=== PATIENT | female | born 1960 | race Caucasian/White ===

== ENCOUNTER 2018-11-26 17:18 | Inpatient (IN) | payer SELFPAY ==
[~2018-11-26] VITALS: Ht 167.6 cm; Wt 156.0 kg
[~2018-11-26 17:18] MED LIST: ASPIRIN 81 MG E81 MG PO; BIOTIN5 MG PO; CINNAMON500 MG PO; FISH OIL 1,0001 CA1 PO; L-LYSINE500 M1; LASIX20 MG PO; LOPRESSOR25 MG; PERCOCET 10/3251 TA1 PO; POTASSIUM99 M1; VITAMIN A10000 UNIT PO; VITAMIN B-122500 MCG SL; VITAMIN D31000 UNIT; ZESTRIL20 MG PO
[2018-11-26 18:04] VITALS: BP 178/103; BMI 55.6
[2018-11-26 18:40] LABS: BASOPHILS 0.1 % (0-2); EOSINOPHILS 0.8 % (0-7); HEMATOCRIT 45.2 % (36.0-48.0); HEMOGLOBIN 14.2 g/dL (12-16); IMMATURE GRANULOCYTES 0.1 % (0-5); LYMPHOCYTES 9.7 % (15-50); MCH 26.1 pg (26.0-34.0); MCHC 31.4 g/dL (31.0-37.0); MCV 83.1 fL (80.0-100.0); MEAN PLATELET VOLUME 8.7 fL (7.4-10.4); MONOCYTES 7.5 % (2-11); NEUTROPHILS 81.8 % (40-80); PLATELET COUNT 230 10x3/uL (130-400); RBC 5.44 10x6/uL (4.00-5.40); RDW 17.5 % (11.5-14.5); WBC 7.4 10x3/uL (4.8-10.8)
[2018-11-26 18:57] LABS: ANION GAP 9.7 mmol/L (8-16); CALCIUM 8.4 mg/dL (8.5-10.1); CARBON DIOXIDE 31.1 mmol/L (21.0-32.0); CREATININE - SERUM 1.2 mg/dL (0.6-1.3); POTASSIUM - SERUM 4.8 mmol/L (3.5-5.1)
[2018-11-26 20:34] VITALS: BP 166/106
[2018-11-27 01:07] VITALS: BP 147/81
--- NOTE | 2018-11-27 04:17 | NUR ---
1930) rec;d sitting on side of bed ,at bedside encouraged to elevate legs to reduce swelling as well as to reduce increase further swelling.breonna. lower ext. angry red with 2+ edema refuses to palpate for pulse states just to tender to touch.nohelia wrap drsg dry and intact lower ext.iv started right wrist will continue to monitor for any chges in current status and follow current plan of care
[2018-11-27 04:52] VITALS: BP 148/72
--- NOTE | 2018-11-27 06:43 | NUR ---
I have reviewed this patient and I concur with the Shift Assessment completed by the Licensed Practical Nurse today this shift.
--- NOTE | 2018-11-27 07:58 | NUR ---
PT SITTING UP ON THE SIDE OF BED WITH FEET PROPPED UP ON CHAIR WITH LEGS WEEPING ONTO BLUE PADS IN THE FLOOR. STATES THAT HER LEGS BURN WAY TOO BAD TO LEAVE THE DRESSINGS ON. IV LOCATED TO RIGHT WRIST RUNNING NS @ [facility]. ALERT AND ORIENTED. WOUND CULTURE OBTAINED AND TAKEN TO LAB. DENIES ANY NEEDS AT THIS TIME, WILL CONT TO MONITOR.
[2018-11-27 08:33] VITALS: BP 164/96
--- NOTE | 2018-11-27 12:16 | NUR ---
RESITED IV TO LEFT FOREARM. NO S/S OF DISTRESS, DENIES ANY NEEDS AT THIS TIME. WILL CONT TO MONITOR.
[2018-11-27 13:30] VITALS: BP 158/98
[2018-11-27 15:17] VITALS: Ht 167.6 cm; Wt 156.0 kg
--- NOTE | 2018-11-27 20:33 | NUR ---
REC'D. CHGE OF SHIFT WALKING ROUNDS SITTING UP BEDSIDE CHAIR FEET ELEVATED.ACEWRAP DRSG TO BOTH LOWER EXT.REMAINS RED WITH MOD. SWELLING BOTH FEET. STILL UNABLE TO LET NURSE TOUCH FEET FOR PULSE STATES HURTS TO BAD. WIGGLES TOES AND DORSIFLEXES.WILL CONTINUE TO MONITOR FOR ANY CHGES IN NEUROVASCULAR STATUS AND FOLLOW CURRENT PLAN OF CARE.
[2018-11-27 21:28] VITALS: BP 150/80
[2018-11-28 01:13] VITALS: BP 158/100
--- NOTE | 2018-11-28 03:56 | NUR ---
I have reviewed this patient and I concur with the Shift Assessment completed by the Licensed Practical Nurse today this shift.
[2018-11-28 05:45] VITALS: BP 119/59
[2018-11-28 08:11] VITALS: BP 118/74
--- NOTE | 2018-11-28 11:11 | NUR ---
PT ALERT X 4. BREATH SOUNDS CLEAR BILAT. IV TO RIGHT AC, PATENT, DRESSING CDI. BLE CORINNA WRAPS, SKIN REDDENED. PT REPORTING PAIN OF 6/10, WILL MONITOR. PT SITTING UP IN CHAIR. BED LOW, CALL LIGHT IN REACH. NO OTHER NEEDS AT THIS TIME.
--- NOTE | 2018-11-28 12:51 | NUR ---
DISCHARGE PAPERWORK SIGNED, ALL QUESTIONS ANSWERED. IV TO LEFT AC DC'D, TIP INTACT. ESCORTED OUT BY WHEELCHAIR
[2018-11-28 13:38] VITALS: BP 108/67
[2018-11-28 16:45] VITALS: BP 108/60
[2018-11-28 20:00] VITALS: BP 124/73
--- NOTE | 2018-11-28 20:00 | NUR ---
A/O WITH NO SIGNS OF ACUTE DISTRESS. IV TO THE LT FOREARM WITH NO REDNESS OR SWELLING NOTED. DRESSING TO THE MARILOU LOWER LEGS WITH REDNESS NOTED. COMPLAINING OF 8/10 PAIN. DENIES FURTHER NEEDS AT THIS TIME. CONTINUE WITH PLAN OF CARE.
[2018-11-29] VITALS: BP 113/82
[2018-11-29 04:00] VITALS: BP 111/58
[2018-11-29 07:36] LABS: BASOPHILS 0.2 % (0-2); EOSINOPHILS 1.1 % (0-7); HEMATOCRIT 42.3 % (36.0-48.0); HEMOGLOBIN 13.1 g/dL (12-16); IMMATURE GRANULOCYTES 0.1 % (0-5); MCV 83.9 fL (80.0-100.0); MEAN PLATELET VOLUME 8.8 fL (7.4-10.4); MONOCYTES 10.8 % (2-11); NEUTROPHILS 74.8 % (40-80); PLATELET COUNT 257 10x3/uL (130-400); RBC 5.04 10x6/uL (4.00-5.40); RDW 17.9 % (11.5-14.5); WBC 8.8 10x3/uL (4.8-10.8)
[2018-11-29 07:47] LABS: ANION GAP 10.3 mmol/L (8-16); CALCIUM 8.4 mg/dL (8.5-10.1); CARBON DIOXIDE 30.3 mmol/L (21.0-32.0); CREATININE - SERUM 1.3 mg/dL (0.6-1.3); POTASSIUM - SERUM 4.6 mmol/L (3.5-5.1)
[2018-11-29 09:42] VITALS: BP 128/66
--- NOTE | 2018-11-29 10:04 | NUR ---
Nutrition follow-up: Diet: consistent CHO PO intake is usually good Labs reviewed Wt: 344# RDN following.
--- NOTE | 2018-11-29 12:28 | MORECARE ---
CASE MANAGEMENT DISCHARGE SUMMARY PATIENT: AMBIKA HOUSE UNIT: [id number] ADM DATE: 11/26/18 AGE: 58 : 62 SEX: F ROOM/BED: D.2202 AUTHOR: SUBHASH ORTEGA PHYSICIAN: REFERRING PHYSICIAN: TONIO DAVILA MD DATE OF SERVICE: 11/29/18 Discharge Plan Patient Name: AMBIKA HOUSE Facility: [facility]:[place] : 1960 Planned Disposition: Home or Self Care Anticipated Discharge Date: Discharge Date: Expected LOS: Initial Reviewer: [email or web address] Initial Review Date: 11/26/2018 Generated: 11/29/18 1:28 pm Comments DCP- Discharge Planning Updated by [email or web address]: April Ross on 11/29/18 11:[address] Patient Name: AMBIKA HOUSE Admission Status: Elective Accout number: [id number] Admission Date: 11-26-2018 : 1960 Admission Diagnosis:CHRONIC VENOUS HYPERTENSION W ULCER OF BILATERAL LOW EX Attending: TONIO DAVILA Current LOS: 3 Anticipated DC Date: Planned Disposition: Home or Self Care Primary Insurance: UNINSURED DISCOUNT PLAN Discharge Planning Comments: CM met with patient to complete initial dc planning assessment. CM educated patient on the CM role and verbal consent given by patient to complete assessment. Patient lives at home with her where she is independent with her care . At discharge patient plans to return home and feels this is a safe discharge. CM discussed availability of home health, rehab services, and medical equipment. She does not use any DME. She is uninsured and does not qualify for JAMES, so she will not be able to have home health if needed. Patient denied known discharge needs at this time. CM will continue to follow and will assist as needed with dc plans/needs. Loader Magazine Grinder: April Ross DCPIA - Discharge Planning Initial Assessment Updated by [email or web address]: April Ross on 11/29/18 12:25 pm * How many steps to enter\exit or inside your home? * PCP GIOVANNI * Pharmacy [facility] * Preadmission Environment Home with Family * ADLs Independent * Equipment None * List name and contact numbers for known caregivers / representatives who currently or will assist patient after discharge: MICAELA HOUSE [phone] * Verbal permission to speak to the caregivers and representatives has been obtained from the patient. N/A * Community resources currently utilized None * Additional services required to return to the preadmission environment? No * Can the patient safely return to the preadmission environment? Yes * Has this patient been hospitalized within the prior 30 days at any hospital? No Patient Name: AMBIKA HOUSE Page [phone] at 1228 All edits/amendments must be made on the electronic document DICTATION DATE: 11/29/18 1228 BATTERY PLATE REMOVER: LIANNA 11/29/18 1228 RPT#: [id number] OR DATE: STATUS: ADM IN [facility] [address] [place] [address] END OF REPORT
[2018-11-29 13:05] VITALS: BP 106/70
[2018-11-29 16:48] VITALS: BP 111/63
--- NOTE | 2018-11-29 19:13 | NUR ---
REMAINS WITHOUT DISTRESS. CONT PLAN OF CARE
[2018-11-29 20:00] VITALS: BP 112/62
[2018-11-30] VITALS: BP 103/70
[2018-11-30 04:00] VITALS: BP 99/45
[2018-11-30] MEDS ORDERED: TOPROL XL25 MG PO (06:31)
[2018-11-30 07:25] LABS: BASOPHILS 0.4 % (0-2); EOSINOPHILS 1.4 % (0-7); HEMATOCRIT 46.2 % (36.0-48.0); HEMOGLOBIN 13.5 g/dL (12-16); IMMATURE GRANULOCYTES 0.1 % (0-5); LYMPHOCYTES 20.1 % (15-50); MCH 25.6 pg (26.0-34.0); MCHC 29.2 g/dL (31.0-37.0); MEAN PLATELET VOLUME 8.8 fL (7.4-10.4); MONOCYTES 11.5 % (2-11); NEUTROPHILS 66.5 % (40-80); RBC 5.27 10x6/uL (4.00-5.40); RDW 17.9 % (11.5-14.5); WBC 7.2 10x3/uL (4.8-10.8)
[2018-11-30 07:26] LABS: MCV 87.7 fL (80.0-100.0); PLATELET COUNT 318 10x3/uL (130-400)
[2018-11-30 07:35] LABS: ANION GAP 9.9 mmol/L (8-16); CALCIUM 8.7 mg/dL (8.5-10.1); CARBON DIOXIDE 33.2 mmol/L (21.0-32.0); CREATININE - SERUM 1.5 mg/dL (0.6-1.3); POTASSIUM - SERUM 5.1 mmol/L (3.5-5.1)
[2018-11-30 08:47] VITALS: BP 159/101
--- NOTE | 2018-11-30 10:57 | NUR ---
PATIENT SITTING IN CHAIR. BROUGHT SOME REDNESS TO MY ATTENTION ON HER LEFT ARM WHERE THEY USED PAPER TAPE ON HER. CALLS HER IV MACHINE/POLL NOLBERTO. CO SON THAT IS 38 YO IS BEING CRAZY AND NOT TALKING TO HIS "ADOPTED" GRANDFATER. CL IN REACH. REQUESTED AND RECIEVED ICE AND ICE WATER. TM
[2018-11-30 13:38] VITALS: BP 142/106
[2018-11-30 16:45] VITALS: BP 136/103
[2018-11-30 20:00] VITALS: BP 157/97
--- NOTE | 2018-11-30 20:58 | NUR ---
PT C/O BILAT LEG PAIN 07/13. GAVE 1 TAB NORCO-10. BILAT UNNA BOOT BANDAGES C/D/I. LOVENOX GIVEN. PT SITTING UP IN CHAIR WITH LEGS ELEVATED. COMPLETE ASSESSMENT PER FLOW-SHEET. NO OTHER NEEDS. WILL CONTINUE TO MONITOR.
[2018-12-01 04:00] VITALS: BP 129/78
[2018-12-01 06:31] LABS: BASOPHILS 0.6 % (0-2); HEMATOCRIT 44.5 % (36.0-48.0); HEMOGLOBIN 13.2 g/dL (12-16); IMMATURE GRANULOCYTES 0.1 % (0-5); LYMPHOCYTES 16.5 % (15-50); MCH 25.6 pg (26.0-34.0); MCHC 29.7 g/dL (31.0-37.0); MCV 86.2 fL (80.0-100.0); MEAN PLATELET VOLUME 8.8 fL (7.4-10.4); MONOCYTES 12.5 % (2-11); NEUTROPHILS 68.3 % (40-80); PLATELET COUNT 325 10x3/uL (130-400); RBC 5.16 10x6/uL (4.00-5.40); RDW 17.4 % (11.5-14.5); WBC 7.1 10x3/uL (4.8-10.8)
[2018-12-01 06:53] LABS: ANION GAP 11.6 mmol/L (8-16); CALCIUM 8.4 mg/dL (8.5-10.1); CARBON DIOXIDE 30.3 mmol/L (21.0-32.0); CREATININE - SERUM 1.4 mg/dL (0.6-1.3); VANCOMYCIN - TROUGH 27.5 ug/mL (10.0-20.0)
[2018-12-01 06:54] LABS: POTASSIUM - SERUM 3.9 mmol/L (3.5-5.1)
--- NOTE | 2018-12-01 07:51 | NUR ---
PT SITTING UP IN BEDSIDE CHAIR, ALERT AND ORIENTED. COMPLAINING OF PAIN AT IV SITE, DC`D WITH CATHETER TIP INTACT WILL RESITE. BREATHING EVEN AND NONLABORED, NO S/S OF DISTRESS. DENIES NEEDS AT THIS TIME, WILL CONT TO MONITOR.
[2018-12-01 08:46] VITALS: BP 140/87
--- NOTE | 2018-12-03 08:46 | MORECARE ---
CASE MANAGEMENT DISCHARGE SUMMARY PATIENT: AMBIKA HOUSE UNIT: [id number] ADM DATE: 11/26/18 AGE: 58 : 62 SEX: F ROOM/BED: D.2202 AUTHOR: SUBHASH ORTEGA PHYSICIAN: REFERRING PHYSICIAN: TONIO DAVILA MD DATE OF SERVICE: 12/03/18 Discharge Plan Patient Name: AMBIKA HOUSE Facility: [facility]:[place] : 1960 Planned Disposition: Home or Self Care Anticipated Discharge Date: Discharge Date: 12/01/2018 Expected LOS: Initial Reviewer: [email or web address] Initial Review Date: 11/26/2018 Generated: 12/03/18 9:46 am Comments DCP- Discharge Planning Updated by [email or web address]: April Ross on 11/29/18 11:[address] Patient Name: AMBIKA HOUSE Admission Status: Elective Accout number: [id number] Admission Date: 11-26-2018 : 1960 Admission Diagnosis:CHRONIC VENOUS HYPERTENSION W ULCER OF BILATERAL LOW EX Attending: TONIO DAVILA Current LOS: 3 Anticipated DC Date: Planned Disposition: Home or Self Care Primary Insurance: UNINSURED DISCOUNT PLAN Discharge Planning Comments: CM met with patient to complete initial dc planning assessment. CM educated patient on the CM role and verbal consent given by patient to complete assessment. Patient lives at home with her where she is independent with her care . At discharge patient plans to return home and feels this is a safe discharge. CM discussed availability of home health, rehab services, and medical equipment. She does not use any DME. She is uninsured and does not qualify for JAMES, so she will not be able to have home health if needed. Patient denied known discharge needs at this time. CM will continue to follow and will assist as needed with dc plans/needs. Senior Business Objects Developer: April Ross DCPIA - Discharge Planning Initial Assessment Updated by [email or web address]: April Ross on 11/29/18 12:25 pm * How many steps to enter\exit or inside your home? * PCP GIOVANNI * Pharmacy [facility] * Preadmission Environment Home with Family * ADLs Independent * Equipment None * List name and contact numbers for known caregivers / representatives who currently or will assist patient after discharge: MICAELA HOUSE [phone] * Verbal permission to speak to the caregivers and representatives has been obtained from the patient. N/A * Community resources currently utilized None * Additional services required to return to the preadmission environment? No * Can the patient safely return to the preadmission environment? Yes * Has this patient been hospitalized within the prior 30 days at any hospital? No Last DP export: 11/29/18 11:28 a Patient Name: AMBIKA HOUSE Page [phone] at 0846 All edits/amendments must be made on the electronic document DICTATION DATE: 12/03/18845 AMUSEMENT RIDE OPERATOR: LIANNA 12/03/18845 RPT#: [id number] DC DATE:12/01/18 STATUS: DIS IN [facility] [address] [place] [address] END OF REPORT
== END 2018-12-01 12:00 | disposition home or self-care (01) | DRG 300 ==
LOC: D.MS 17:18
PROVIDERS: ADMIT Family Medicine; ATTEND Family Medicine
DX: I87.313 Chronic venous hypertension (idiopathic) with ulcer of bilateral lower extremity (principal); L03.116 Cellulitis of left lower limb; L97.222 Non-pressure chronic ulcer of left calf with fat layer exposed; L97.212 Non-pressure chronic ulcer of right calf with fat layer exposed; L03.115 Cellulitis of right lower limb; R60.0 Localized edema; I10 Essential (primary) hypertension; R73.03 Prediabetes; B96.5 Pseudomonas (aeruginosa) (mallei) (pseudomallei) as the cause of diseases classified elsewhere; B96.89 Other specified bacterial agents as the cause of diseases classified elsewhere

== ENCOUNTER 2019-02-17 01:51 | Inpatient (IN) | payer SELFPAY ==
[2019-02-17] VITALS (23 sets, daily range): BP systolic 94–123; BP diastolic 42–89; BMI 48.2
[~2019-02-17] VITALS: Ht 167.6 cm; Wt 146.4 kg
[~2019-02-17 01:51] MED LIST changes: +TOPROL XL25 MG PO
[2019-02-17 02:18] LABS: BASOPHILS 0.1 % (0-2); EOSINOPHILS 1.3 % (0-7); HEMATOCRIT 34.9 % (36.0-48.0); HEMOGLOBIN 10.6 g/dL (12-16); IMMATURE GRANULOCYTES 0.5 % (0-5); LYMPHOCYTES 6.5 % (15-50); MCH 26.2 pg (26.0-34.0); MCHC 30.4 g/dL (31.0-37.0); MCV 86.2 fL (80.0-100.0); MEAN PLATELET VOLUME 8.2 fL (7.4-10.4); MONOCYTES 5.1 % (2-11); NEUTROPHILS 86.5 % (40-80); PLATELET COUNT 333 10x3/uL (130-400); RBC 4.05 10x6/uL (4.00-5.40); RDW 20.7 % (11.5-14.5); WBC 8.2 10x3/uL (4.8-10.8)
[2019-02-17 02:21] LABS: INR 1.17 (0.85-1.17); PROTIME 14.4 SECONDS (11.6-15.0)
[2019-02-17 02:22] LABS: CALC OSMOLALITY 289 mosm/kg (275-300); CALCIUM 8.6 mg/dL (8.5-10.1); CARBON DIOXIDE 15.3 mmol/L (21.0-32.0); CHLORIDE - SERUM 107 mmol/L (98-107); CREATININE - SERUM 2.9 mg/dL (0.6-1.3); GLUCOSE 122 mg/dL (74-106); POTASSIUM - SERUM 5.5 mmol/L (3.5-5.1); SODIUM 137 mmol/L (136-145); UREA NITROGEN 55 mg/dL (7-18); eGFR NON AFRICAN AMERICAN 18 mL/min (90-120)
--- NOTE | 2019-02-17 02:25 | NUR ---
DRESSINGS REMOVED, SEVERE ULCERATIONS NOTED TO BLE. PRESSURE ULCERS NOTED TO HEELS. DRAINAGE AND ODOR PRESENT.
[2019-02-17] MEDS ORDERED: ZYRTEC10 MG PO (02:33)
[2019-02-17] MEDS ORDERED: HYDROCODON-ACE1 EAC7 PO (02:33)
[2019-02-17 02:36] LABS: ALBUMIN 1.7 g/dL (3.4-5.0); ALKALINE PHOSPHATASE 148 U/L (46-116); ALT (SGPT) 54 U/L (10-68); BILIRUBIN - TOTAL 0.31 mg/dL (0.2-1.3); CKMB 0.6 U/L (0.0-3.6); CREATINE KINASE 20 UL (21-215); MAGNESIUM - SERUM 1.8 mg/dL (1.8-2.4); THYROID STIMULATING HORMONE 11.48 uIU/mL (0.36-3.74); TROPONIN-I < 0.017 ng/mL (0.000-0.060)
--- NOTE | 2019-02-17 03:15 | NUR ---
WOUNDS TO BILAT LOWER LEGS CLEANSED AND DRESSED.
[2019-02-17 03:36] LABS: APPEARANCE HAZY (CLEAR); BILIRUBIN NEGATIVE (NEGATIVE); COLOR YELLOW (YELLOW); GLUCOSE NEGATIVE (NEGATIVE); KETONE NEGATIVE (NEGATIVE); NITRITE POSITIVE (NEGATIVE); PROTEIN TRACE mg/dL (NEGATIVE); RED CELLS - URINE 0-5 /hpf (0-5); UROBILINOGEN NORMAL (NORMAL)
[2019-02-17 03:37] LABS: BACTERIA MANY /hpf (NEGATIVE); EPITHELIAL CELLS RARE /hpf (0-5)
--- NOTE | 2019-02-17 03:42 | NUR ---
PT RESTING ON BED, EYES CLOSED. PT FAMILY PRESENT AT BEDSIDE.
--- NOTE | 2019-02-17 05:28 | NUR ---
PT ARRIVED ON UNIT VIA STRETCHER ACCOMPANIED BY ER STAFF. NO VALUABLES, PT UNABLE TO SPEAK, FOLLOWS COMMANDS, EYES ARE OPEN AND TRACKING. SHE IS ONLY MOANING WITH SOME UNINTELLIGIBLE SPEECH
--- NOTE | 2019-02-17 06:28 | NUR ---
UNABLE TO SUICIDE SCREEN AT THIS TIME - UNABLE TO PLACE SCDS DUE TO WOUNDS AND POSSIBLE INFECTION
--- NOTE | 2019-02-17 07:18 | NUR ---
PATIENT DOES NOT ACTUALLY WAKE UP, MOANS WHEN SPOKEN TOO. DOES NOT OPEN EYES, GASPING TYPE RESP ON OXYGEN NC AT 4 LITERS. OX2 SAT 97%. LEFT FOREARM AND LEFT AC IV'S WITHOUT REDNESS OR SWELLING INFUSING WITH CARDIZEM AT 5MG HOUR, LR AT 125 ML HOUR. HARDIN CAHT DRAINING CLEAR YELLOW URINE. MONITOR ST WITH PVC'S. BECOMES STARLED WHEN PILLOW PLACED UNDER HER HEAD. HEAD OF BED ELEVATED 30 DEGREES. BILATERAL LOWER LEGS WRAPPED IN KERLIX. FEET HAVE PITTING EDEMA AND ARE A DEEP PINK COLOR. DRESSING ARE DRY. NO DRAINAGE NOTED.
--- NOTE | 2019-02-17 08:34 | NUR ---
DR. IZAGUIRRE NOTIFIED OF FREQ PVC, BIGEMINAL COUPLETS, TRIPLETS, VERY FREQ PVC'S. CONSULT FOR CARDIOLOGY. DR. RAMIREZ NOTIFIED. DR. IZAGUIRRE NOTIFIED OF NOT WAKING UP AND BREATHING [POORLY. CONSULT FOR PULMONARY
--- NOTE | 2019-02-17 08:40 | NUR ---
TALKED WITH AT BEDSIDE. UPDATE GIVEN. NOTIFIED OF CARDIOLOGY AND PULMONARY CONSULTS. PATIENT IS A FULL CODE. EMOTIONAL SUPPORT GIVEN.
--- NOTE | 2019-02-17 10:00 | NUR ---
HIBCLENS BATH GIVEN PATIENT TOLERATED VERY POORLY. CLEAN LINEN AND REPOSITIONED. BOTH DRESSING LOWER LEGS SATURATED WITH FOUL SMELLING LIQUID. BOTH DRESSING REMOVED, STERILE 4X4 AND ABD PADS APPLIED WRAPPED IN KERLIX. PATIENT TOLERATED POORLY. LOWER LEGS ELEVATED ON PILLOWS. HEELS OFF MATTRESS. NO SKIN BREAKDOWN NOTED ON BODY. JUST LOWER LEGS, EXTENSIVE OPEN WOUNDS WITH YELLOW, BLACK AND PINK TISSUE. TENDONS NOTED ON RIGHT ANKLES. LEFT HEEL BLACK BLISTER AREA.
--- NOTE | 2019-02-17 11:56 | NUR ---
DR. DE LOS SANTOS HERE TALKED WITH . ORDERS RECEIVED FOR SURGERY CONSULT REGARDING LEGS WITH X-RAY WITH GAS ON THEM. LARGE AMOUNT CLEAR YELLOW FOUL SMELLING DRAINAGE FROM LEGS. DRESSING REMOVED. DRY 4X4 AND ABD PADS APPLIED WRAPPED IN KERLIX. OPEN WOUNDS PINK VERY LARGE.
--- NOTE | 2019-02-17 12:36 | NUR ---
DR. IZAGUIRRE HERE. TALKED WITH . PATIENT ANSWERING YES AND NO QUESTIONS. MOANING BUT DENIES PAIN DENIES SHE IS UNCOMFORTABLE.
--- NOTE | 2019-02-17 12:44 | NUR ---
CENTRAL LINE INSERTED PER DR. SARKAR WITHOUT DIFFICULTY PATIENT TOLERATED FAIR. CXR DONE. LINE CLEARED FOR USE.
--- NOTE | 2019-02-17 13:00 | NUR ---
DR. SARKAR HERE, DRESSING REMOVED LOWER EXTREMITIES WITH REMOVAL OF SOME TISSUE PER DR. SARKAR. HERE TALKED WITH . LOWER EXTREMITITES CLEAN WITH SOAP AND WATER PER DR. SARKAR INSTRUCTIONS. DR. FERNANDO HERE STATES TO USE WET TO DRY BETADINE DRESSINGS. TOMORROW THEN CAN USE SILVADEAN. BETADINE 4X4 APPLIED TO OPEN WOUNDS, ABD PADS APPLIED WRAPPED LEGS IN KERLIX. DRESSING CHANGE VERY PAINFUL FOR PATIENT. MORPHINE QUALITY ASSURANCE MONITOR STARTED 3 MG BOLUS LOADING DOSE GIVEN DURING DRESSING CHANGE FOR PAIN. GIVEN INSTRUCTIONS ON QUALITY ASSURANCE MONITOR. PATIENT GIVEN INSTRUCTION ON QUALITY ASSURANCE MONITOR PUMP AND SAID NO PRESSING BUTTON.
--- NOTE | 2019-02-17 15:00 | NUR ---
PATIENT RESTING MORE COMFORTABLY ANSWERING QUESTIONS , STILL MOANING AT TIMES. BUT REST AT TIMES. REPOSITIONED. CVP SET UP
--- NOTE | 2019-02-17 18:22 | NUR ---
PATIENT WAKES UP TO NAME OPENS EYES, MOANING AT TIMES. RESP DEEP AND REGULAR. NOT ALWAY ANSWERING QUESTIONS.
--- NOTE | 2019-02-17 19:15 | NUR ---
REPORT RECEIVED. ASSESSMENT COMPLETE PER FLOW SHEET. VSS. NO NEW CHANGES PT ERSTING COMFORTABLY WILL CONTINUE TO MONITOR
--- NOTE | 2019-02-17 21:00 | NUR ---
FAMILY AT BEDSIDE GIVEN UPDATE NO NEW CHANGES WILL CONTINUE TO MONITOR
--- NOTE | 2019-02-17 23:15 | NUR ---
REPORT RECEIVED. ASSESSMENT COMPLETE PER FLOW SHEET. VSS. NO NE CHANGES WILL CONTINUE TO MONITOR
[2019-02-18] VITALS (24 sets, daily range): BP systolic 92–114; BP diastolic 50–78; Ht 167.6 cm; Wt 146.4 kg
--- NOTE | 2019-02-18 01:00 | NUR ---
PT SLEEPING COMFORTABLY NO NEW CHANGES REPOSITIONED FOR COMFORT WILL CONTINUE TO MONITOR
--- NOTE | 2019-02-18 03:14 | NUR ---
REASSESSMENT COMPLETE PER FLOW SHEET. VSS. NO NEWCAHNGES WILL CONTINUE TO MONITOR
[2019-02-18 04:04] LABS: BASOPHILS 0.2 % (0-2); EOSINOPHILS 0.7 % (0-7); IMMATURE GRANULOCYTES 0.3 % (0-5); LYMPHOCYTES 11.1 % (15-50); MCH 26.4 pg (26.0-34.0); MCHC 30.3 g/dL (31.0-37.0); MEAN PLATELET VOLUME 7.8 fL (7.4-10.4); MONOCYTES 14.5 % (2-11); NEUTROPHILS 73.2 % (40-80); RDW 20.9 % (11.5-14.5)
[2019-02-18 04:08] LABS: HEMATOCRIT 25.4 % (36.0-48.0); HEMOGLOBIN 7.7 g/dL (12-16); PLATELET COUNT 241 10x3/uL (130-400); RBC 2.92 10x6/uL (4.00-5.40); WBC 11.4 10x3/uL (4.8-10.8)
[2019-02-18 04:12] LABS: APTT 48.7 SECONDS (22.8-39.4)
[2019-02-18 04:20] LABS: D-DIMER-QUANTITATIVE 2.82 ug/mLFEU (0.20-0.54)
[2019-02-18 04:29] LABS: ALBUMIN 1.3 g/dL (3.4-5.0); BILIRUBIN - DIRECT 0.12 mg/dL (0.00-0.30); BILIRUBIN - INDIRECT 0.16 mg/dL (0.00-1.00); BILIRUBIN - TOTAL 0.28 mg/dL (0.2-1.3); MAGNESIUM - SERUM 1.8 mg/dL (1.8-2.4); PHOSPHOROUS 4.3 mg/dL (2.5-4.9)
[2019-02-18 04:40] LABS: INR 1.51 (0.85-1.17); PROTIME 17.6 SECONDS (11.6-15.0)
--- NOTE | 2019-02-18 05:30 | NUR ---
PT AWAKE ALERT OREINTED AT THIS TIME. VSS. NO FURTHER NEW CHANGES PT GIVEN ICE WATER PER ERWQUEST AND REPOSITIONED. DENIES FURTHER NEEDS
--- NOTE | 2019-02-18 07:30 | NUR ---
ASSUMED CARE OF PT FROM CHARGE NURSE, PT RESTING IN BED, ANSWERS QUESTIONS BUT IS CONFUSED OF TIME AND SITUATION, REORIENTED. VSS. DENIES ANY NEEDS AT THIS TIME, WILL CONT TO FOLLOW POC
--- NOTE | 2019-02-18 09:30 | NUR ---
PT RESTING IN BED, VSS AND WNL. FAMILY AT BEDSIDE. DENIES ANY NEEDS AT THIS TIME, BED ALARM ON, WILL CONT TO FOLLOW POC
--- NOTE | 2019-02-18 10:00 | NUR ---
WOUND CARE PROVIDED ORDERED TO BLE. COMPUTER NETWORKING INSTRUCTOR ADJUNCT BUTTON EDUCATION PROVIDED AND PT VERBALIZES UNDERSTANDING ON USE. COMPUTER NETWORKING INSTRUCTOR ADJUNCT WITHIN REACH, FAMILY AT BEDSIDE, WILL CONT TO FOLLOW POC
--- NOTE | 2019-02-18 12:00 | NUR ---
TRAY SET UP PROVIDED. PT IS NOT HUNGRY AT THIS TIME, FAMILY AT BEDSIDE AND WILL TRY TO GET PT TO TAKE A FEW BITES. BED ALARM ON. DENIES ANY FURTHER NEEDS AT THIS TIME, WILL CONT TO FOLLOW POC
--- NOTE | 2019-02-18 12:54 | NUR ---
PT BP DROPPED INTO 80S SYSTOLIC. PAUSED AMIODARONE AND PT BP INCREASED BACK INTO THE 100S SYSTOLIC. NOTIFIED DR. CÁRDENAS, NEW ORDERS RECIEVED TO STOP AMIODARONE FOR NOW.
--- NOTE | 2019-02-18 15:00 | NUR ---
PT RESTING IN BED, VSS AND WNL. FAMILY AT BEDSIDE. BED ALARM ON. DENIES ANY NEEDS AT THIS TIME, WILL CONT TO FOLLOW POC
--- NOTE | 2019-02-18 16:00 | NUR ---
PT RESTING IN BED, VSS AND WNL. FAMILY AT BEDSIDE, NO SIGNS OF DISTRESS NOTED. WILL CONT TO FOLLOW POC
--- NOTE | 2019-02-18 17:59 | NUR ---
PT HR IS STARTING TO RISE AT 103 BPM, BP STABLE AT 95/50 AT THIS TIME, NOTIFIED AND NEW ORDER RECIEVED FOR 500ML LR BOLUS. WILL CONT TO FOLLOW POC
--- NOTE | 2019-02-18 19:15 | NUR ---
REPORT RECEIVED. ASSESSMENT COMPLETE PER FLOW SHEET. VSS. NO NEW CHANGES PT RESTING COMFORTABLY DENIES NEEDS WILL CONTINUE TO MONITOR
--- NOTE | 2019-02-18 21:00 | NUR ---
FAMILY AT BEDSIDE GIVEN UPDATE NO NEW CHANGES WILL CONTINUE TO MONITOR
--- NOTE | 2019-02-18 23:00 | NUR ---
REASSESSMENT COMPLETE PER FLW SHEET. VSS. NO NEW CHANGES WILL CONTINUE TO MONITOR
[2019-02-19] VITALS (24 sets, daily range): BP systolic 92–119; BP diastolic 41–79
--- NOTE | 2019-02-19 01:20 | NUR ---
PT SLEEPING COMFORTABLY VSS NO NEW CHANGES PT RESTING COMFORTABLY WILL CONTINIUE TO MONITOR
--- NOTE | 2019-02-19 03:15 | NUR ---
REPORT RECEIVED. ASSESSMENT COMPLETE PER FLOW SHEET. VSS. NO NEW CHANGES WILL CONTINUE TO MONITOR
--- NOTE | 2019-02-19 05:15 | NUR ---
PT GIVEN ICE WATER PER REQUEST. DENIES FURTHER NEEDS VSS WILL CONTINUE TO MONITOR
[2019-02-19 05:19] LABS: BASOPHILS 0.2 % (0-2); EOSINOPHILS 2.3 % (0-7); HEMATOCRIT 26.5 % (36.0-48.0); HEMOGLOBIN 7.7 g/dL (12-16); IMMATURE GRANULOCYTES 0.2 % (0-5); LYMPHOCYTES 13.7 % (15-50); MCH 25.8 pg (26.0-34.0); MCHC 29.1 g/dL (31.0-37.0); MCV 88.9 fL (80.0-100.0); MEAN PLATELET VOLUME 8.2 fL (7.4-10.4); MONOCYTES 11.7 % (2-11); NEUTROPHILS 71.9 % (40-80); PLATELET COUNT 239 10x3/uL (130-400); RBC 2.98 10x6/uL (4.00-5.40); WBC 9.5 10x3/uL (4.8-10.8)
[2019-02-19 05:54] LABS: ANION GAP 9.8 mmol/L (8-16); BILIRUBIN - TOTAL 0.51 mg/dL (0.2-1.3); CALCIUM 8.2 mg/dL (8.5-10.1); CARBON DIOXIDE 27.9 mmol/L (21.0-32.0); CREATININE - SERUM 1.5 mg/dL (0.6-1.3); MAGNESIUM - SERUM 1.8 mg/dL (1.8-2.4); POTASSIUM - SERUM 4.7 mmol/L (3.5-5.1); PROTEIN - SERUM 5.8 g/dL (6.4-8.2)
[2019-02-19 06:08] LABS: ALBUMIN 1.8 g/dL (3.4-5.0)
--- NOTE | 2019-02-19 07:00 | NUR ---
PT RESTING IN BED, VSS AND WNL. PT TEARFUL BUT ANSERS QUESTIONS. PT IS CONFUSED OF CURRENT YEAR. BED ALARM ON. HARDIN CATHER NOTED DRAINING DARK YELLOW URINE FREELY VIA GRAVITY. WILL CONT TO FOLLOW POC
--- NOTE | 2019-02-19 09:00 | NUR ---
PT RESTING IN BED, VSS AND WNL. AT BEDSIDE. DENIES ANY NEEDS AT THIS TIME, WILL CONT TO FOLLOW POC
--- NOTE | 2019-02-19 09:37 | MORECARE ---
CASE MANAGEMENT DISCHARGE SUMMARY PATIENT: AMBIKA HOUSE UNIT: [id number] ADM DATE: 02/17/19 AGE: 58 : 62 SEX: F ROOM/BED: D.2309 AUTHOR: SUBHASH ORTEGA PHYSICIAN: REFERRING PHYSICIAN: TONIO DAVILA MD DATE OF SERVICE: 02/19/19 Discharge Plan Patient Name: AMBIKA HOUSE [facility] : 1960 Planned Disposition: Anticipated Discharge Date: Discharge Date: Expected LOS: Initial Reviewer: [email or web address] Initial Review Date: 02/19/2019 Generated: 02/19/19 10:36 am DCPIA - Discharge Planning Initial Assessment Updated by [email or web address]: Bertha Vivas on 02/19/19 9:35 am * Is the patient Alert and Oriented? Yes * How many steps to enter\exit or inside your home? 4-7 * PCP Maverick * Pharmacy [facility] * Preadmission Environment Home with Family * ADLs Independent * Equipment Wheelchair * Other Equipment B/P CUFF * List name and contact numbers for known caregivers / representatives who currently or will assist patient after discharge: SHAKA HOUSE - SPOUSE - [phone] * Verbal permission to speak to the caregivers and representatives has been obtained from the patient. Yes * Community resources currently utilized None * Additional services required to return to the preadmission environment? No * Can the patient safely return to the preadmission environment? Yes * Has this patient been hospitalized within the prior 30 days at any hospital? No Patient Name: AMBIKA HOUSE Page [phone] at 0937 All edits/amendments must be made on the electronic document DICTATION DATE: 02/19/19935 DISTRIBUTION ASSOCIATE: LAINNA 02/19/19935 RPT#: [id number] DC DATE: STATUS: ADM IN [facility] [address] [place] [address] END OF REPORT
--- NOTE | 2019-02-19 10:07 | MORECARE ---
CASE MANAGEMENT DISCHARGE SUMMARY PATIENT: AMBIKA HOUSE UNIT: [id number] ADM DATE: 02/17/19 AGE: 58 : 62 SEX: F ROOM/BED: D.2309 AUTHOR: SHANNON,DOC PHYSICIAN: REFERRING PHYSICIAN: TONIO DAVILA MD DATE OF SERVICE: 02/19/19 Discharge Plan Patient Name: AMBIKA HOUSE Facility: [facility]:[place] : 1960 Planned Disposition: Anticipated Discharge Date: Discharge Date: Expected LOS: Initial Reviewer: [email or web address] Initial Review Date: 02/19/2019 Generated: 02/19/19 11:06 am Comments DCP- Discharge Planning Updated by [email or web address]: Bertha Vivas on 02/19/19 9:[address] Patient Name: AMBIKA HOUSE Admission Status: ER Accout number: [id number] Admission Date: 02-17-2019 : 1960 Admission Diagnosis: Attending: TONIO DAVILA Current LOS: 2 Anticipated DC Date: Planned Disposition: Primary Insurance: UNINSURED DISCOUNT PLAN Discharge Planning Comments: CM met with patient to complete initial dc planning assessment. CM educated patient on the CM role and verbal consent given by patient to complete assessment. Patient lives at home with her where she is independent with her care. At discharge patient plans to return home and feels this is a safe discharge. CM discussed availability of home health, rehab services, and medical equipment. Patient is uninsured stated they are just over income limit and may need assistance upon discharge Patient denied known discharge needs at this time. CM will continue to follow and will assist as needed with dc plans/needs. Stone Finisher: Bertha Vivas DCPIA - Discharge Planning Initial Assessment Updated by [email or web address]: Bertha Vivas on 02/19/19 9:35 am * Is the patient Alert and Oriented? Yes * How many steps to enter\exit or inside your home? 4-7 * PCP Maverick * Pharmacy [facility] * Preadmission Environment Home with Family * ADLs Independent * Equipment Wheelchair * Other Equipment B/P CUFF * List name and contact numbers for known caregivers / representatives who currently or will assist patient after discharge: SHAKA Foster SPOUSE - [phone] * Verbal permission to speak to the caregivers and representatives has been obtained from the patient. Yes * Community resources currently utilized None * Additional services required to return to the preadmission environment? No * Can the patient safely return to the preadmission environment? Yes * Has this patient been hospitalized within the prior 30 days at any hospital? No Last DP export: 02/19/19 8:37 Patient Name: AMBIKA HOUSE Page 19409 at 1007 All edits/amendments must be made on the electronic document DICTATION DATE: 02/19/19 100 VALUE STREAM COACH: LAINNA 02/19/19 100 RPT#: [id number] DC DATE: STATUS: ADM IN [facility] [address] [place] [address] END OF REPORT
--- NOTE | 2019-02-19 11:00 | NUR ---
PT RESTING IN BED, VSS AND WNL. WOUND CARE PROVIDED ORDERED. PT TOLERATED OK. CALL LIGHT WITHIN REACH. FAMILY AT BEDSIDE. WILL CONT TO FOLLOW POC
--- NOTE | 2019-02-19 13:00 | NUR ---
PT SLEEPING IN BED. VSS AND WNL. FAMILY AT BEDSIDE. CALL LIGHT WITHIN REACH. WILL CONT TO FOLLOW POC
--- NOTE | 2019-02-19 13:07 | CN ---
PATIENT NAME:AMBIKA HOUSE MEDICAL RECORD: [id number] : 62 LOCATION:[facility]2309 ADMIT DATE: 02/17/19 ACCOUNT: [id number] CONSULTING PHYSICIAN: JOSE CÁRDENAS MD REFERRING PHYSICIAN: TONIO DAVILA MD DATE OF CONSULTATION: 02/17/2019 HISTORY OF PRESENT ILLNESS: A 58-year-old female with a history of prediabetes, hypertension, slow healing ulcers of bilateral lower extremities, admitted with cellulitis, sepsis, has been having marked dysrhythmias during this time. She has been acidotic as well as a marked worsening of baseline renal insufficiency with creatinine 2.9, currently on a Cardizem drip. However, she has had some nonsustained VT as well. We were asked to see her regarding cardiovascular status. Family member present reports no known history of cardiovascular disease, although multiple risk factors. PAST MEDICAL HISTORY: Includes, 1. History of hypertension. 2. Venous insufficiency with slow healing ulcers. 3. Prediabetes. 4. Dyslipidemia. MEDICATIONS: Typically at home include furosemide 20 mg p.o. day, hydrocodone 5/325 every day, metoprolol 25 daily, lisinopril 20 every day. ALLERGIES: BACTRIM. SOCIAL HISTORY: Nonsmoker, having quit a while back. Nondrinker. Some difficulty with ADLs due to the slow healing ulcers. Good family support. REVIEW OF SYSTEMS: The patient reports easy bruising but reports no swollen glands. The patient reports no fever, no night sweats, no significant weight gain, no significant weight loss. No significant exercise tolerance. The patient reports no dry eyes, no irritation, no vision change. Patient reports no difficulty hearing and no ear pain. Patient reports no frequent nose bleeds or nose and sinus problems. Patient reports on arm pain on exertion. No shortness of breath while lying down. No history of heart murmur. Patient reports no cough, no wheezing or coughing up blood. Patient reports no abdominal pain, no vomiting. Normal appetite. No diarrhea and not vomiting blood. No nausea and no constipation. Patient reports no incontinence. No difficulty urinating. No hematuria. No increased frequency. Patient reports no muscle aches. No weakness, no arthralgias, no back pain. No swelling of the extremities. Patient reports no abnormal mole, no jaundice, no rashes. Reports no loss of consciousness. No weakness and no numbness. No seizures, dizziness, or headaches. The patient reports no depression, no sleep disturbance, feeling safe in a relationship and no alcohol abuse. Patient reports on fatigue. Reports no runny nose or sinus pressure. No itching, no hives, and no frequent sneezing. PHYSICAL EXAMINATION: GENERAL: Pleasant female. Mild to moderate distress, appears stated age. VITAL SIGNS: Pulse 112, blood pressure 100/63. HEENT: Normocephalic, atraumatic. NECK: No bruits noted. HEART: Tachycardic, II/ systolic ejection murmur. Question S4 gallop. CONSULT REPORT [id number] AMBIKA HOUSE LUNGS: Fairly good air excursion this point. ABDOMEN: Soft, nontender. EXTREMITIES: Pulses are decreased, no obvious edema. IMPRESSION: Sepsis with worsening renal insufficiency, cardiac arrhythmias, acidosis, etc. Given ventricular may well switch from Cardizem to Cordarone. Echocardiographic study has been ordered. Further recommendations based on clinical course. Discussed with family in detail. TRANSINT:[id number] Voice Confirmation ID: [id number] DOCUMENT ID: [id number] JOSE CÁRDENAS MD at 1307 CC: [id number] DICTATION DATE: 02/17/19 1022 ENGINEERING LAB TECHNICIAN: 02/17/192208 ADM IN [facility] [address] [place] [address]
--- NOTE | 2019-02-19 13:07 | EC ---
PATIENT:AMBIKA HOUSE DATE OF SERVICE: 02/17/19 SEX: F MEDICAL RECORD: [id number] DATE OF : 62 LOCATION:[facility] AGE OF PATIENT: 58 ADMISSION DATE: 02/17/19 REFERRING PHYSICIAN: INTERPRETING PHYSICIAN: JOSE CÁRDENAS MD ECHOCARDIOGRAM REPORT ECHO CHARGES 4 ECHO COMPLETE Date: 02/17/19 CLINICAL DIAGNOSIS: ATRIAL FLUTTER ECHOCARDIOGRAPHIC MEASUREMENTS (adult normal given) AC root (d.<3.7cm) 3.7 cm LV Septum d (<1.2 cm> 2.0 cm Valve Excursion 1.9 cm LV Septum (systole) 2.2 cm Left Atria (s.<4.0cm> 3.4 cm LVPW d(<1.2cm) 1.8 cm RV (d.<2.3cm) 3.9 cm LVPW (sytole) 2.2 cm LV diastole(<5.6CM) 4.6 cm MV E-F(>70mm/sec) cm LV systole 3.0 cm LVOT Diameter 1.6 cm MV exc.(>10mm) 1.8 cm Est.ejection fraction (50-75%) % DOPPLER: LVIT cm/sec A 106.0cm/sec E 55.0 cm/sec LA cm/sec RVSP 32 mmHg LVOT 124 cm/sec AOP1/2T m/s Asc. Ao 174 cm/sec RVOT 103 cm/sec RA cm/sec PA 147 cm/sec AV Gradient Peak 12.13mmHg AV Mean 6.93 mmHg AV Area 1.6 cm MV Gradient Peak 5.12 mmHg MV Mean 2.01 mmHg MV Area cm COMMENTS: Skates Operator: 2 PRISCA ALCOCER Community Development Manager: 3 Dr. Hoang TAPE# PACS Pericardial Effusion N DATE OF SERVICE: Adequate 2D, color flow, spectral Doppler, and M-mode. LVH is present. LV internal dimension is normal. Wall motion is normal. EF is greater than or equal to 55%. Aortic valve is tricuspid. No evidence of stenosis by Doppler interrogation. Left atrium is normal at 3.0. Mitral valve shows no prolapse. Right-sided chambers grossly normal. [id number] TR. TRANSINT:[id number] Voice Confirmation ID: [id number] DOCUMENT ID: [id number] ECHOCARDIOGRAM REPORT [id number] AMBIKA HOUSE,JOSE Gonzales MD at 1307 CC: [id number] DICTATION DATE: 02/18/19 100 SYSTEMS DEVELOPER: 02/18/19 1523 ADM IN [facility] [address] [place] [id number]
--- NOTE | 2019-02-19 13:55 | HP ---
PATIENT: AMBIKA HOUSE MEDICAL RECORD: [id number] ACCOUNT: [id number] LOCATION:[facility] D.2309 : 62 ADMISSION DATE: 02/17/19 PCP: No PCP HISTORY AND PHYSICAL EXAMINATION DATE OF ADMISSION: 02/17/2019 CHIEF COMPLAINT: Sepsis, cellulitis, open wound of legs. HISTORY OF PRESENT ILLNESS: This is a 58-year-old morbidly obese female who has had open wounds on her lower extremities for a few months. She was hospitalized here in November for this. She has been seeing Dr. Palacio for wound care about twice a month. In fact, Dr. Palacio made a house call just a few days ago and saw her there and she has white coat hypertension and anxiety, and her wounds were reportedly healing. But over the last 24-48 hours, things have gotten worse. She became more confused, cellulitis looked worse. She was complaining of increased pain and could not get up and walk. called EMS last night and they brought her in for further evaluation. She had a temperature up to 101.3, heart rate was 149 and her blood pressure was 96/42, all indicating sepsis. Her creatinine was elevated at 2.9. Potassium was elevated at 5.5. She was admitted to the ICU, started on antibiotics. PAST MEDICAL HISTORY: Morbid obesity, hypertension, lower extremity edema, prediabetes and the wounds on her lower extremities. ALLERGIES: SULFA. HOME MEDICATIONS: Include lisinopril 20 mg a day, Lasix 20 mg a day, metoprolol succinate 25 mg a day, cetirizine 10 mg a day, Flonase nasal spray a day. HABITS: Former smoker, no alcohol or drugs. SOCIAL HISTORY: She is . FAMILY HISTORY: Lung disease and hypertension. REVIEW OF SYSTEMS: GENERAL: No major weight changes. HEENT: She has allergy problems. RESPIRATORY: No history of emphysema or COPD. CARDIAC: No chest pain, palpitations. She does have hypertension. GASTROINTESTINAL: No significant diarrhea, constipation or heartburn. GENITOURINARY: No significant problems there. MUSCULOSKELETAL: No significant arthritic aches and pains. NEUROLOGIC: No seizures or migraines. PSYCHIATRIC: She has no depression. LABORATORY DATA: Today ABG: pH 7.269, pCO2 of 33, pO2 of 66. Basic metabolic panel; potassium 5.5, CO2 15.3, BUN 55, creatinine 2.9, glucose is 122. CBC showed a white count of 8200, hemoglobin 10.6, hematocrit 34.9. Lactic acid is normal at 1.8. Magnesium was normal at 1.8. Liver functions are normal. TSH is elevated at 11.48. INR 1.17. Urinalysis positive nitrite, trace blood, 2+ leukocyte esterase, 10-25 white blood cells, many bacteria. HISTORY AND PHYSICAL [id number] AMBIKA HOUSE PHYSICAL EXAMINATION: VITAL SIGNS: T-max is 101.3, currently 98.8; heart rate max was 149, currently 108, respirations 22, blood pressure 95/54, O2 sats 99%. GENERAL: She is in ICU bed, she says a few words when I ask her are any questions. She moans, but states she is not hurting anywhere. HEENT: Grossly within normal limits. NECK: Supple. HEART: Mild tachycardia. LUNGS: Clear. ABDOMEN: Morbidly obese, nontender. EXTREMITIES: Her dressings have just been replaced, but the report is she has open wounds on both lower extremities with purulent drainage, a little worse on the left, exam per ER doctor. IMAGING DATA: Chest x-ray shows mild cardiomegaly. X-ray of the left tib-fib consistent with cellulitis with a questionable small amount of gas and soft tissues. X-ray of the left ankle consistent with cellulitis. No evidence of osteomyelitis. X-ray of the right ankle is consistent with cellulitis with no evidence of osteomyelitis. X-ray of the right tib-fib was consistent with cellulitis. No evidence of osteomyelitis. ASSESSMENT: 1. Sepsis, Cellulitis, lower extremities. 2. Open wounds, lower extremities. 3. History of hypertension. PLAN: She has had multiple PVCs. Cardiology is being consulted with arrhythmias. Also, there was concern about respiratory failure and she is in the ICU. Pulmonary/critical care has been consulted. She is started on antibiotics. We will consult Dr. Palacio, but we will also ask general surgery to see due to the gas in the soft tissues. Other tests or procedures as warranted. Dr. Temple to her assume care tomorrow morning. TRANSINT:[id number] Voice Confirmation ID: [id number] DOCUMENT ID: [id number] INES IZAGUIRRE MD at 1355 CC: [id number] DICTATION DATE: 02/17/19 1255 MECHANICAL PRODUCT ENGINEER: 02/17/19 1734 ADM IN [place] [id number] [place] [id number]
--- NOTE | 2019-02-19 15:00 | NUR ---
PT RESTING IN BED, FAMILY AT BEDSIDE. VSS AND WNL BED ALARM ON. CALL LIGHT WIHTIN REACH. DENIES ANY NEEDS AT THIS TIME, WILL CONT TO FOLLOW POC
--- NOTE | 2019-02-19 17:16 | NUR ---
PT REFUSING TO WEAR BIPAP. NOTIFIED .
--- NOTE | 2019-02-19 18:19 | NUR ---
PT RESTING IN BED, VSS AND WNL. NO SIGNS OF DISTRESS NOTED. CALL LIGHT WITHIN REACH, WILL CONT TO FOLLOW POC
--- NOTE | 2019-02-19 19:15 | NUR ---
REPORT RECEIVED. PT DISORIENTED TO TIME ONLY. ON 2L O2 VIA NC, PT ON CONTACT ISOLATION. ELECTRONICS DETAIL DRAFTSPERSON INFUSING, SEE IV FLOWSHEET. ASSESSMENT COMPLETED, SEE FLOWSHEET. NO ACUTE DISTRESS NOTED AT THIS TIME, WILL CONTINUE TO MONITOR.
--- NOTE | 2019-02-19 21:00 | NUR ---
PT RESTING IN BED, NO ACUTE DISTRESS NOTED AT THIS TIME. FAMILY AT BEDSIDE. WILL CONTINUE TO MONITOR.
--- NOTE | 2019-02-19 23:00 | NUR ---
PT RESTING IN BED. PT REFUSES TO PUT ON BIPAP DUE TO BEING "CLAUSTROPHOBIC." EXPLAINED IMPORTANCE OF WEARING BIPAP, CONTINUES TO REFUSE. WILL CONTINUE TO MONITOR.
[2019-02-20] VITALS (24 sets, daily range): BP systolic 97–133; BP diastolic 64–92
--- NOTE | 2019-02-20 01:00 | NUR ---
PT RESTING IN BED, NO ACUTE DISTRESS NOTED. WILL CONTINUE TO MONITOR.
[2019-02-20 04:56] LABS: BASOPHILS 0.3 % (0-2); EOSINOPHILS 3.3 % (0-7); HEMATOCRIT 26.4 % (36.0-48.0); HEMOGLOBIN 7.6 g/dL (12-16); IMMATURE GRANULOCYTES 0.8 % (0-5); LYMPHOCYTES 16.2 % (15-50); MCH 25.9 pg (26.0-34.0); MCHC 28.8 g/dL (31.0-37.0); MCV 90.1 fL (80.0-100.0); MEAN PLATELET VOLUME 8.2 fL (7.4-10.4); MONOCYTES 11.5 % (2-11); NEUTROPHILS 67.9 % (40-80); PLATELET COUNT 232 10x3/uL (130-400); RBC 2.93 10x6/uL (4.00-5.40); RDW 20.1 % (11.5-14.5); WBC 7.6 10x3/uL (4.8-10.8)
[2019-02-20 05:04] LABS: ALBUMIN 1.8 g/dL (3.4-5.0); ANION GAP 9.9 mmol/L (8-16); BILIRUBIN - TOTAL 0.59 mg/dL (0.2-1.3); CARBON DIOXIDE 30.5 mmol/L (21.0-32.0); CREATININE - SERUM 1.3 mg/dL (0.6-1.3); MAGNESIUM - SERUM 1.6 mg/dL (1.8-2.4); PHOSPHOROUS 3.3 mg/dL (2.5-4.9); POTASSIUM - SERUM 4.4 mmol/L (3.5-5.1); PROTEIN - SERUM 6.1 g/dL (6.4-8.2)
--- NOTE | 2019-02-20 07:00 | NUR ---
PT RESTING IN BED. VSS AND WNL. PT ALERT BUT CONFUSED TO CURRENT YEAR. PT STILL REFUSING TO USE BIPAP. HADRIN CATHETER DRAINING STRAW TINGED URINE FREELY VIA GRAVITY. BED ALARM ON. WILL CONT TO FOLLOW POC
--- NOTE | 2019-02-20 08:48 | NUR ---
PT RYTHM CONVERTED FROM NSR TO AFIB/FLUTTER. EKG OBTAINED. NOTIFIED DR.ST ELIZALDE. NEW ORDER RECIEVED TO START CORDARONE 400MG PO BID. WILL CONT TO FOLLOW POC
--- NOTE | 2019-02-20 11:00 | NUR ---
WOUND CARE PROVIDED TO BLE. PT TOLERATED OK. KITCHEN SUPERVISOR BUTTON WITHIN REACH. CALL LIGHT WITHIN REACH. DENIES ANY NEEDS AT THIS TIME, WILL CONT TO FOLLOW POC
--- NOTE | 2019-02-20 12:30 | NUR ---
PT REPOSITIONED. TRAY SET UP PROVIDED. SPOUSE AT BEDSIDE ASSISTING WITH FEEDING. VSS AND WNL. CALL LIGHT WITHIN REACH. TERMITE CONTROL TECHNICIAN BUTTON WITHIN REACH. WILL CONT TO FOLLOW POC
--- NOTE | 2019-02-20 13:23 | NUR ---
HERE AND EXPLAINED TO PT AND FAMILY RISKS OF NOT USING BIPAP. PT RESP SHALLOW AND CO2 CONT TO RISE. TRAVEL ACCOMMODATION INSPECTOR DISCONTINUED AND PRN MORPHINE IVP ORDERED. FAMILY AWARE. PT HAS ON BIPAP AT THIS TIME, WILL CONT TO FOLLOW POC
--- NOTE | 2019-02-20 14:38 | NUR ---
Nutrition follow-up: Pt is laying in bed moaning 2/2 pain Bilateral leg wounds Diet: low sodium PO intake is poor at this time; has been assisting with meals Labs reviewed Wt: 315# Pt may benefit from ProcalAmine PPN @ 75 ml/hr 2/2 poor po intake. RDN following.
--- NOTE | 2019-02-20 15:30 | NUR ---
PT RESTING IN BED. VSS AND WNL. CALL LIGHT WITHIN REACH. BED ALARM ON. DENIES ANY NEEDS AT THIS TIME, WILL CONT TO FOLLOW POC
--- NOTE | 2019-02-20 17:30 | NUR ---
PT RESTING IN BED, VSS AND WNL. BED ALARM ON. DENIES ANY NEEDS AT THIS TIME, NO SIGNS OF DISTRESS NOTED. WILL CONT TO FOLLOW POC
--- NOTE | 2019-02-20 19:15 | NUR ---
REPORT RECEIEVED, PT AAOX4, SITTING UP IN BED. DISCUSSED WITH PATIENT USE OF BIPAP. PT THEN BECAME VERY TEARFUL AND UPSET. DISUSSED VERY THOROUGHLY AND AGREED TO PUT ON BIPAP STARTING AT 1999. ASSESSMENT COMPLETE, PIV IN LEFT AC INFUSING, RIGHT SUBCLAVIAN CVL INFUSING, SEE FLOWSHEET. NO ACUTE DISTRESS NOTED AT THIS TIME. WILL CONTINUE TO MONITOR.
--- NOTE | 2019-02-20 20:00 | NUR ---
PT PLACED ON BIPAP. SPOUSE AT BEDSIDE.
--- NOTE | 2019-02-20 21:00 | NUR ---
PT DISTRAUGHT WHILE WEARING BIPAP. PTS SPOUSE IN ROOM.
--- NOTE | 2019-02-20 23:00 | NUR ---
PT AAOX4, SITTING UP IN BED. BIPAP IN PLACE. NO ACUTE DISTRESS NOTED. WILL CONTINUE TO MONITOR.
[2019-02-21] VITALS (23 sets, daily range): BP systolic 118–164; BP diastolic 59–98
--- NOTE | 2019-02-21 01:00 | NUR ---
PT ON BIPAP, EMOTIONALLY DISTRAUGHT. NO ACUTE DISTRESS NOTED, WILL CONTINUE TO MONITOR.
--- NOTE | 2019-02-21 03:00 | NUR ---
PT SITTING UP IN BED, DISORIENTED TO TIME ONLY. REORIENTED NEEDED. WILL CONTINUE TO MONITOR.
--- NOTE | 2019-02-21 05:00 | NUR ---
PT AAOX4, SITTING UP IN BED. BIPAP IN PLACE, SPOUSE AT BEDSIDE. NO ACUTE DISTRESS NOTED, WILL CONTINUE TO MONITOR.
[2019-02-21 05:21] LABS: BASOPHILS 0.4 % (0-2); EOSINOPHILS 3.1 % (0-7); HEMOGLOBIN 8.1 g/dL (12-16); LYMPHOCYTES 14.8 % (15-50); MCHC 28.9 g/dL (31.0-37.0); MEAN PLATELET VOLUME 8.2 fL (7.4-10.4); MONOCYTES 8.1 % (2-11); NEUTROPHILS 72.6 % (40-80); RBC 3.11 10x6/uL (4.00-5.40); RDW 19.1 % (11.5-14.5); WBC 7.7 10x3/uL (4.8-10.8)
[2019-02-21 05:26] LABS: PLATELET COUNT 294 10x3/uL (130-400)
[2019-02-21 05:45] LABS: ANION GAP 4.7 mmol/L (8-16); BILIRUBIN - TOTAL 0.79 mg/dL (0.2-1.3); CARBON DIOXIDE 33.5 mmol/L (21.0-32.0); CREATININE - SERUM 1.1 mg/dL (0.6-1.3); MAGNESIUM - SERUM 1.6 mg/dL (1.8-2.4); POTASSIUM - SERUM 4.2 mmol/L (3.5-5.1); PROTEIN - SERUM 6.2 g/dL (6.4-8.2)
[2019-02-21 05:48] LABS: PHOSPHOROUS 2.2 mg/dL (2.5-4.9)
--- NOTE | 2019-02-21 07:00 | NUR ---
PT REPORT RECEIVED FROM WINCH OPERATOR NURSE. NO VISIBLE SIGNS OF DISTRESS NOTED. SHIFT ASSESSMENT COMPLETED. WILL CONITNUE TO MONITOR
--- NOTE | 2019-02-21 09:00 | NUR ---
PT RESTING IN BED. FAMILY AT BEDSIDE. NO VISIBLE SIGNS OF DISTRESS NOTED. WILL CONTINUE TO MONITOR
--- NOTE | 2019-02-21 11:00 | NUR ---
DRESSINGS CHANGED ON PT LEGS. PT TOLERATED WELL. REASSESSMENT COMPLETED. WILL CONTINUE TO MONITOR
--- NOTE | 2019-02-21 13:00 | NUR ---
PT RESTING IN BED. NO VISIBLE SIGNS OF DISTRESS NOTED. WILL CONTINUE TO MONITOR
--- NOTE | 2019-02-21 14:19 | NUR ---
TRANSFER ORDER PUT IN TO TRANSFER PT TO FLOOR.
--- NOTE | 2019-02-21 15:00 | NUR ---
PT RESTING IN BED. NO VISIBLE SIGNS OF DISTRESS NOTED. PT WEARING BIPAP. WILL CONTINUE TO MONITOR
--- NOTE | 2019-02-21 17:00 | NUR ---
PT RESTING IN BED. FAMILY AT BEDSIDE. PT HAD BM. CLEANED UP AND LINENS CHANGED. WILL CONTINUE TO MONITOR
--- NOTE | 2019-02-21 19:00 | NUR ---
SHIFT ASSESSMENT COMPLETED. PT CARE ASSUMED, MONITORS ON AND WORKING, VITALS STABLE. AT BEDSIDE, PT AND VOICE WANTING PT TO BE MOVED TO FLOOR, I EXPLAINED THE PROCESS OF GETTING A ROOM ON THE FLOOR, BOTH STATED UNDERSTANDING. CALL LIGHT WITHIN REACH, SEE FLOW SHEET FOR FURTHER DETAILS. WILL CONTINUE TO OBSERVE.
--- NOTE | 2019-02-21 23:30 | NUR ---
EXTENSIVE DISCUSSION WITH PT AND RE: BIPAP, CO2 RETENTION AND CONSEQUENCES. PT VERBALIZES UNDERSTANDING AND VEHEMENTLY REFUSES BIPAP AT THIS TIME. STATES SHE JUST CANNOT TAKE IT. MAY TRY IT LATER BUT JUST CANT DO IT NOW.
[2019-02-22] VITALS (8 sets, daily range): BP systolic 141–163; BP diastolic 56–106
--- NOTE | 2019-02-22 01:00 | NUR ---
PT TURNED AND REPOSITIONED FOR COMFORT, COMPLETE LINEN CHNAGE DONE AT THIS TIME, PT CLEANED FROM SMALL BM. MONITORS ON AND WORKING, VITALS STABLE, CALL LIGHT WITHIN REACH, WILL CONTINUE TO OBSERVE.
[2019-02-22 04:00] LABS: BASOPHILS 0.2 % (0-2); EOSINOPHILS 2.8 % (0-7); HEMATOCRIT 28.1 % (36.0-48.0); IMMATURE GRANULOCYTES 0.9 % (0-5); LYMPHOCYTES 12.3 % (15-50); MCH 25.6 pg (26.0-34.0); MCHC 28.5 g/dL (31.0-37.0); MCV 90.1 fL (80.0-100.0); MEAN PLATELET VOLUME 8.2 fL (7.4-10.4); MONOCYTES 8.7 % (2-11); NEUTROPHILS 75.1 % (40-80); PLATELET COUNT 306 10x3/uL (130-400); RBC 3.12 10x6/uL (4.00-5.40); RDW 18.4 % (11.5-14.5); WBC 8.2 10x3/uL (4.8-10.8)
[2019-02-22 04:12] LABS: ALBUMIN 2.2 g/dL (3.4-5.0); ANION GAP 5.8 mmol/L (8-16); CALCIUM 7.9 mg/dL (8.5-10.1); CARBON DIOXIDE 36.8 mmol/L (21.0-32.0); CREATININE - SERUM 1.1 mg/dL (0.6-1.3); POTASSIUM - SERUM 3.6 mmol/L (3.5-5.1)
--- NOTE | 2019-02-22 07:10 | NUR ---
PATIENT RECEIVED TO ROOM WITH IV RT. SUBCLAVIAN AND LT. F/A. CA;; ;OGHT IN REACH WITH EDEMA TO BLE
--- NOTE | 2019-02-22 07:45 | NUR ---
Nutrition follow-up: Just out of ICU Diet: low sodium PO intake ~25% of last 3 meals Refusing to wear BIPAP Wt: 232# RDN following.
[2019-02-23] VITALS: BP 143/104
[2019-02-23 04:00] VITALS: BP 131/88
[2019-02-23 06:42] LABS: BASOPHILS 0.3 % (0-2); EOSINOPHILS 2.8 % (0-7); HEMATOCRIT 29.9 % (36.0-48.0); HEMOGLOBIN 8.5 g/dL (12-16); LYMPHOCYTES 14.3 % (15-50); MCH 26.1 pg (26.0-34.0); MCHC 28.4 g/dL (31.0-37.0); MCV 91.7 fL (80.0-100.0); MONOCYTES 9.7 % (2-11); NEUTROPHILS 71.9 % (40-80); PLATELET COUNT 323 10x3/uL (130-400); RBC 3.26 10x6/uL (4.00-5.40); RDW 18.8 % (11.5-14.5)
[2019-02-23 06:48] LABS: ANION GAP 8.5 mmol/L (8-16); CARBON DIOXIDE 34.5 mmol/L (21.0-32.0); CREATININE - SERUM 1.1 mg/dL (0.6-1.3)
--- NOTE | 2019-02-23 09:00 | NUR ---
ALERT AND ORIENTED X4 DRESSINGS INTACT TO BLE AND DENIES ANY PAIN OR DISCOMFORT AT THIS TIME. HARDIN CATH PATENT WITH CLEAR ERIC URINE. RTL SUBCLAVIAN CENTRAL LINE INTACT WITH IVF INFUSING AT PRESCRIBED RATE. O2 AT 1.5 L PER N/C. DENIES ANY CHEST PAIN OR DISCOMFORT WITH TELEMETRY INTACT. ENCOURAGED TO USE CALL LIGHT FOR ASSIST.
[2019-02-23 09:19] VITALS: BP 158/88
[2019-02-23 13:03] VITALS: BP 152/91
[2019-02-23 16:37] VITALS: BP 156/98
[2019-02-23 20:00] VITALS: BP 152/97
[2019-02-24] VITALS: BP 169/105
--- NOTE | 2019-02-24 01:50 | NUR ---
PT C/O LEG PAIN 7/10 AND NOT BEING ABLE TO GO TO SLEEP. GAVE PT TYLENOL 650 MG PO AND BENADRYL 25 MG IV PUSH. 20 MINUTES LATER PT CALLED FOR NURSE. STATES HER LEFT ARM IS "SPASMING" AND HER HEAD IS "FUZZY". EXPLAINED TO PT THAT THE MEDICINE PROBABLY IS MAKING HER FEEL "FUZZY" AND IF SHE TRIES TO RELAX SHE WILL PROBABLY GO TO SLEEP. PT IS VERY ANXIOUS. CALLED ICU NURSE BERNADETTE. ANGELICA FLEMING AND PALOMA RT CAME TO EVALUATE PT. PT WAS ENCOURAGED TO SLEEP AND WEAR HER BIPAP. PT AGREED AND PUT BIPAP ON. PT ASLEEP NOW. WILL CONTINUE TO MONITOR. PT'S AT BEDSIDE.
[2019-02-24 04:00] VITALS: BP 172/98
--- NOTE | 2019-02-24 05:00 | NUR ---
PT IS EXTREMELY ANXIOUS. ASSISTED PT TO SIT UP ON SIDE OF BED. CALLED DR. DAVILA. WAITING ON BENEFITS ASSISTANT TO PULL SEROQUEL ORDERED.
[2019-02-24 05:10] LABS: BASOPHILS 0.4 % (0-2); EOSINOPHILS 3.1 % (0-7); HEMATOCRIT 31.9 % (36.0-48.0); HEMOGLOBIN 9.1 g/dL (12-16); IMMATURE GRANULOCYTES 1.1 % (0-5); LYMPHOCYTES 15.5 % (15-50); MCH 26.1 pg (26.0-34.0); MCHC 28.5 g/dL (31.0-37.0); MCV 91.7 fL (80.0-100.0); MEAN PLATELET VOLUME 8.1 fL (7.4-10.4); MONOCYTES 9.6 % (2-11); NEUTROPHILS 70.3 % (40-80); PLATELET COUNT 302 10x3/uL (130-400); RBC 3.48 10x6/uL (4.00-5.40); RDW 18.8 % (11.5-14.5); WBC 7.5 10x3/uL (4.8-10.8)
[2019-02-24 05:40] LABS: ANION GAP 11.9 mmol/L (8-16); CALCIUM 8.4 mg/dL (8.5-10.1); CARBON DIOXIDE 32.9 mmol/L (21.0-32.0); CREATININE - SERUM 1.2 mg/dL (0.6-1.3); POTASSIUM - SERUM 3.8 mmol/L (3.5-5.1)
[2019-02-24 08:11] VITALS: BP 162/98
--- NOTE | 2019-02-24 09:00 | NUR ---
AWAKE AND DROWSY SITTING IN SEMIFOWLER POSITION. 02 1.5L N/C. DRESSINGS INTACT TO BLE AND DENIES ANY PAIN OR DISCOMFORT AT THIS TIME. IVF INFUSING AT PRESCRIBED RATE TO RT. SUBCLAVIAN. TELEMETRY INTACT. ENCOURAGED TO USE CALL LIGHT FOR ASSIST
[2019-02-24 16:33] VITALS: BP 141/97
[2019-02-24 20:35] VITALS: BP 153/96
--- NOTE | 2019-02-24 22:52 | NUR ---
PREMEDICATED PT WITH MORPHINE 2 MG IV PUSH. PERFORMED DRESSING CHANGE. PT TOOK SCHEDULED MEDS. PT TOOK SCHEDUELED MEDS AND IS RESTING COMFORTABLE NOW. NO OTHER NEEDS. COMPLETE ASSESSMENT PER FLOW-SHEET. WILL CONTINUE TO MONITOR.
[2019-02-25 01:20] VITALS: BP 146/84
[2019-02-25 05:21] VITALS: BP 132/68
--- NOTE | 2019-02-25 08:00 | NUR ---
AWAKE AND ALERT. ORIENTED X3. NO C/O AT THIS TIME. LUNGS ARE CLEAR BILATERALLY, NO COUGH NOTED. SKIN IS INTACT WITHOUT REDNESS EXCEPT TO BILATERAL LOWER EXTREMETIES WHICH HAVE DRY INTACT DRESSINGS IN PLACE. RIGHT SUBCLAVIAN IS PATENT WITHOUT REDNESS AT INSERTION SITE. DENIES NEEDS. HARDIN PATENT WITH CLEAR YELLOW URINE.
[2019-02-25 08:25] VITALS: BP 146/84
[2019-02-25 08:28] LABS: BASOPHILS 0.4 % (0-2); EOSINOPHILS 2.8 % (0-7); HEMATOCRIT 29.8 % (36.0-48.0); HEMOGLOBIN 8.5 g/dL (12-16); IMMATURE GRANULOCYTES 0.7 % (0-5); LYMPHOCYTES 13.6 % (15-50); MCH 26.4 pg (26.0-34.0); MCHC 28.5 g/dL (31.0-37.0); MCV 92.5 fL (80.0-100.0); MEAN PLATELET VOLUME 8.4 fL (7.4-10.4); MONOCYTES 12.6 % (2-11); NEUTROPHILS 69.9 % (40-80); PLATELET COUNT 289 10x3/uL (130-400); RBC 3.22 10x6/uL (4.00-5.40); RDW 19.6 % (11.5-14.5); WBC 6.8 10x3/uL (4.8-10.8)
[2019-02-25 08:40] LABS: ANION GAP 9.7 mmol/L (8-16); CALCIUM 8.3 mg/dL (8.5-10.1); CARBON DIOXIDE 32.2 mmol/L (21.0-32.0); CREATININE - SERUM 1.1 mg/dL (0.6-1.3); POTASSIUM - SERUM 3.9 mmol/L (3.5-5.1)
--- NOTE | 2019-02-25 09:30 | NUR ---
ATE MOST OF BREAKFAST. TOOK AM MEDS WITHOUT DIFFICULTY. VISITOR IN ROOM. DENIES NEEDS.
--- NOTE | 2019-02-25 12:49 | NUR ---
Nutrition follow-up: Diet: Low sodium PO intake has improved; ~60% average of last 9 meals Labs reviewed +BM Wt: 323# RDN following.
[2019-02-25 14:20] VITALS: BP 143/84
[2019-02-25 17:23] VITALS: BP 144/78
--- NOTE | 2019-02-25 19:29 | NUR ---
ATE MOST OF SUPPER AND DRANK AN ENSURE. DENIES NEEDS. NO CHANGES NOTED.
--- NOTE | 2019-02-25 20:00 | NUR ---
A/O SOME SOB NOTED, O2 STAT STABLE. SUB CLAV LINE TO THE RT CHEST, DRESSING, CDI. NC @1L AND HARDIN IN PLACE. INTACT/CLEAN DRESSING NOTED TO THE MARILOU LEGS. PULSES PALP. CONTACT ISOLATION IN PLACE. REQUESTED TYLENOL FOR PAIN 7/10 IN LEGS. FAMILY AT BEDSIDE. DENIES NO FURTHER NEEDS AT THIS TIME. CONTINUE PLAN OF CARE.
[2019-02-25 20:37] VITALS: BP 138/73
[2019-02-26 00:52] VITALS: BP 120/72
[2019-02-26 04:28] VITALS: BP 129/76
--- NOTE | 2019-02-26 04:30 | NUR ---
UPON MAKING ROUNDS PT IS SOB AND DROWSY. CAN ANSWER QUESTION APPROPRIATELY. BLOOD SUGAR 117. ENCOURAGED THE USE OF BIPAP, REFUSED. EDUCATED PT THAT THE MACHINE WILL HELP. STILL REFUSED. WILL MONITOR CLOSEY.
[2019-02-26 05:14] LABS: BASOPHILS 0.5 % (0-2); EOSINOPHILS 4.4 % (0-7); HEMATOCRIT 28.3 % (36.0-48.0); IMMATURE GRANULOCYTES 0.7 % (0-5); LYMPHOCYTES 17.8 % (15-50); MCH 26.8 pg (26.0-34.0); MCHC 28.3 g/dL (31.0-37.0); MEAN PLATELET VOLUME 8.1 fL (7.4-10.4); MONOCYTES 12.4 % (2-11); NEUTROPHILS 64.2 % (40-80); PLATELET COUNT 247 10x3/uL (130-400); RBC 2.99 10x6/uL (4.00-5.40); RDW 20.2 % (11.5-14.5); WBC 6.1 10x3/uL (4.8-10.8)
[2019-02-26 05:20] LABS: MCV 94.6 fL (80.0-100.0)
[2019-02-26 05:58] LABS: ANION GAP 11.1 mmol/L (8-16); CALCIUM 8.4 mg/dL (8.5-10.1); CARBON DIOXIDE 31.9 mmol/L (21.0-32.0); CREATININE - SERUM 1.3 mg/dL (0.6-1.3)
--- NOTE | 2019-02-26 06:30 | NUR ---
PT IS LETHARGIC AND SOB. STAT @96%. CAN BARLEY KEEP EYES OPEN. CAN ANSWER QUESTIONS APPROPRIATELY. WAS ABLE TO GET BIPAP ON AFTER RESPIRATORY THERAPIST TALKED TO PT. WILL CONTINUE TO MONITOR CLOSEY.
--- NOTE | 2019-02-26 07:31 | NUR ---
PT IS VERY LETHARGIC THIS MORNING, PER COMMISSARY PRODUCTION SUPERVISOR NURSE PT HAS REFUSED BIPAP ALL NIGHT. RT HAS DONE ABGS AND REPORTED READINGS TO APPLICATION DEFENSE MANAGER DOC. -PT FAMILY MEMBER UPSET STATES PT IS JUST GOING DOWN [place] CONTINUE WITH PLAN OF CARE
--- NOTE | 2019-02-26 08:03 | NUR ---
LETHARGIC.BLOD GASSES PER RT.ORDERS RECIEVED AND INITIATED PER JENIFER TALBERT LPN AND RESP THERAPY. BIPAP ON PATIENT. AT BEDSIDE
[2019-02-26 08:53] VITALS: BP 102/45
--- NOTE | 2019-02-26 11:52 | NUR ---
PT IS VERY EMOTIONAL, DOES NOT WANT TO WEAR BIPAP. PT IS CRYING, ADVISED HER SHE MUST KEEP BIPAP ON UNTIL DR STATES OTHERWISE, SPOUSE AT BEDSIDE, CONTINUE WITH PLAN OF CARE
[2019-02-26 12:55] VITALS: BP 122/60
--- NOTE | 2019-02-26 16:34 | NUR ---
PT SITTING UP IN BED USING INCENTIVE SPIROMETER, BIPAP CAN BE WORN 4 ON AND [address] QIU AND PT IS AGREEABLE TO THIS, NO S/SX OF DISTRESS, PT IS NOW AWAKE AND ALERT AND STATES FEELING SO MUCH BETTER, SPOUSE AT BEDSIDE, CL IN REACH CONTINUE WITH PLAN OF CARE
[2019-02-26 16:49] VITALS: BP 102/60
--- NOTE | 2019-02-26 20:00 | NUR ---
A/O WITH NO SIGNS OF DISTRESS. CLEAN/INTACT DRESSING TO THE RT CHEST. HARDIN IN PLACE. CLEAN DRESSINGS TO THE MARILOU LEGS. ASSISTED WITH PUTTING ON BIPAP AND DISCUSSED TIME SCHEDULE. FAMILY AT BEDSIDE. DENIES NO NEEDS AT THIS TIME. CONTINUE PLAN OF CARE.
[2019-02-26 21:10] VITALS: BP 154/62
[2019-02-27 01:58] VITALS: BP 113/62
--- NOTE | 2019-02-27 06:50 | NUR ---
ASSISTED BACK ON THE BIPAP. A/O AND CONVERSANT. DENIES NO FURTHER NEEDS AT THIS TIME. CONTINUE PLAN OF CARE.
[2019-02-27 08:09] VITALS: BP 115/56
--- NOTE | 2019-02-27 13:58 | NUR ---
WENT TO CHJANGE DRESSING ON PT AND PT STATED SHE WOULD LIKE OT WAIT FOR DRESSING CHANGE TO BE DONE AFTER GRANDCILDREN ARRIVE, PT STATES PAIN IS AT A 6, ADMINISTERED PRN PAIN MEDICATION. CONTINUE WITH PLAN OF CARE
--- NOTE | 2019-02-27 15:21 | NUR ---
I have reviewed this patient and I concur with the Shift Assessment completed by the Licensed Practical Nurse today this shift.
[2019-02-27 15:49] VITALS: BP 125/67
--- NOTE | 2019-02-27 19:15 | NUR ---
UP IN BED WITH FAMILY AT BEDSIDE. ABLE TO VOICE ALL NEEDS. DOES STATE THAT BLE ARE UNCOMFORTABLE, BUT THAT IT IS THE NEW NORMAL FOR HER. DRESSINGS ARE CDI TO BLE, FEET ARE EDEMATOUS AND SCALY. IV TO RIGHT CHEST PORT IS PATENT AND INFUSING PER ORDERS. WILL NOTE ANY CHANGE.
[2019-02-28] VITALS: BP 121/80
--- NOTE | 2019-02-28 02:51 | NUR ---
I have reviewed this patient and I concur with the Shift Assessment completed by the Licensed Practical Nurse today this shift.
--- NOTE | 2019-02-28 07:00 | NUR ---
ALERT AND ORIENTED, SITTING UP IN BED. NO C/O PAIN. NO S/S OF ACUTE DISTRESS NOTED. DENIES ANY NEEDS AT THIS TIME. CALL LIGHT IN REACH. WILL CONTINUE TO MONITOR.
[2019-02-28 08:43] VITALS: BP 115/55
--- NOTE | 2019-02-28 11:17 | NUR ---
I have reviewed this patient and I concur with the Shift Assessment completed by the Licensed Practical Nurse today this shift.
[2019-02-28 16:40] VITALS: BP 114/74
--- NOTE | 2019-02-28 18:00 | NUR ---
CHANGED DRESSINGS TO BILATERAL LOWER LEGS. REMOVED DRESSING, CLEANED WOUNDS, SCRUBBED WITH BETADINE, APPLIED WET 4X4'S AND PLACED DRY 4X4'S. WRAPPED IN KERLEX AND CORINNA BANDAGE.
--- NOTE | 2019-02-28 18:54 | NUR ---
ALERT AND ORIENTED, SITTING UP IN BED. DENIES ANY NEEDS AT THIS TIME. CALL LIGHT IN REACH. WILL CONTINUE TO MONITOR.
[2019-02-28 20:00] VITALS: BP 132/76
--- NOTE | 2019-03-01 00:36 | NUR ---
I have reviewed this patient and I concur with the Shift Assessment completed by the Licensed Practical Nurse today this shift.
[2019-03-01 04:00] VITALS: BP 128/76
--- NOTE | 2019-03-01 05:31 | NUR ---
REC'D CHGE OF SHIFT WALKING ROUNDS IN BED DRSGS.DRY AND INTACT LOWER EXT BILAT.TOES PINK AND WARM WIGGLES WITHOUT DIFFICULTY. HADRIN PATENT AND DRAING DK ERIC COLORED URINE.WILL CONTINUE TO MONITOR FOR ANY CHGES IN NEUROVASCULAR STATUS AND FOLLOW CURRENT PLAN OF CARE
--- NOTE | 2019-03-01 07:50 | NUR ---
PT IS RESTING IN BED WITH EYES OPEN. RESPIRATIONS ARE EVEN AND UNLABORED. FAMILY IS AT BEDSIDE. PT REPORTS NUMBNESS TO LLE AND STATES PAIN BUT DENIES PAIN MEDICATION AT THIS TIME. PT IS AAO X 4. HARDIN CATHETER NOTED AND DRAINING WITHOUT DIFFICULTY. RIGHT PORT INFUSING WITHOUT DIFFICULTY. RESPIRATORY AT BEDSIDE WITH BLOOD GAS. NOTIFIED OF CA++. DR DAVILA BUTCHERETTE PAGED TO NOTIFY. DRESSING TO BLE ARE IN PLACE RLE IS CDI. LLE WITH MODERATE AMOUNT OF DARK DRAINAGE NOTED. CAP REFILL <3 TO BLE. BIPAP AT BEDSIDE. O2 VIA NC @ 3L. PT DENIES PRESENCE OF N/V. BED IS IN THE LOWEST POSITION. CALL LIGHT AND BEDSIDE TABLE ARE WITHIN REACH. SIDE RAILS X 2. PT DENIES FURTHER NEEDS. WILL CONT TO MONITOR.
--- NOTE | 2019-03-01 07:54 | NUR ---
DR DAVILA RETURNED PAGE AND NOTIFIED OF PT CRITICAL CA++ LEVEL. NO NEW ORDERS RECD.
[2019-03-01 08:59] LABS: BASOPHILS 0.2 % (0-2); EOSINOPHILS 4.7 % (0-7); HEMATOCRIT 30.1 % (36.0-48.0); HEMOGLOBIN 8.5 g/dL (12-16); IMMATURE GRANULOCYTES 0.4 % (0-5); LYMPHOCYTES 20.1 % (15-50); MCH 26.8 pg (26.0-34.0); MCHC 28.2 g/dL (31.0-37.0); MEAN PLATELET VOLUME 8.2 fL (7.4-10.4); MONOCYTES 12.3 % (2-11); NEUTROPHILS 62.3 % (40-80); PLATELET COUNT 243 10x3/uL (130-400); RBC 3.17 10x6/uL (4.00-5.40); RDW 20.5 % (11.5-14.5); WBC 5.4 10x3/uL (4.8-10.8)
[2019-03-01 09:03] VITALS: BP 134/67
[2019-03-01 09:27] LABS: ALBUMIN 3.1 g/dL (3.4-5.0); ANION GAP 10.6 mmol/L (8-16); BILIRUBIN - TOTAL 0.7 mg/dL (0.2-1.3); CALCIUM 8.8 mg/dL (8.5-10.1); CARBON DIOXIDE 30.5 mmol/L (21.0-32.0); CREATININE - SERUM 1.4 mg/dL (0.6-1.3); POTASSIUM - SERUM 4.1 mmol/L (3.5-5.1); PROTEIN - SERUM 6.9 g/dL (6.4-8.2)
--- NOTE | 2019-03-01 10:00 | NUR ---
DRESSINGS CHANGED TO BLE PER ORDER. PT TOLERATED WELL. BED IS IN THE LOWEST POSITION. CALL LIGHT AND BEDSIDE TABLE ARE WITIHN REACH. SIDE RAILS X 2. WILL CONT TO MONITOR.
[2019-03-01 12:10] VITALS: BP 122/65
--- NOTE | 2019-03-01 14:19 | NUR ---
NUTRITION F/U PT TOLERATING AHA DIET WITH 100% INTAKE RECENT MEALS. WILL CONTINUE TO PROVIDE DIET, MONITOR PO INTAKE. RD FOLLOWING
[2019-03-01 16:15] VITALS: BP 117/72
[2019-03-01 20:00] VITALS: BP 130/75
--- NOTE | 2019-03-01 23:04 | NUR ---
REC'D CHGE OF SHIFT WALKING ROUNDS.IN BED SITTING POSITION HOB UP ASLEEP ON AIR MATTRESS IN FLOOR BY BATHROOM DOOR.BLE DRSG DRY AND INTACT WITH HEEL PROTECTORS INTACT CORINNA WRAP INTACT BILAT.DISAPPOINTED STATES WAS NOT REALLY ABLE TO STAND ON FEET TO TRANSFER TO CHAIR VIA PHYSICAL THERAPY WAS TO WEAK. WILL CONTINUE TO MONITOR FOR ANY CHGES AND FOLLOW CURRENT PLAN OF CARE. HARDIN PATENT AND DRAINING DK ERIC COLORED URINE
--- NOTE | 2019-03-02 03:00 | NUR ---
I have reviewed this patient and I concur with the Shift Assessment completed by the Licensed Practical Nurse today this shift.
[2019-03-02 04:00] VITALS: BP 142/77
--- NOTE | 2019-03-02 07:30 | NUR ---
PT RESTING IN BED WITH EYES OPEN, ALERT AND ORIENTED, AT THE BEDSIDE. PORT PRESENT, SALINE LOCKED, BLOOD DRAWN AND TAKEN TO LAB. NO S/S OF DISTRESS AT THIS TIME, DENIES NEEDS, WILL CONT TO MONITOR.
[2019-03-02 07:41] LABS: BASOPHILS 0.2 % (0-2); EOSINOPHILS 5.1 % (0-7); HEMATOCRIT 29.3 % (36.0-48.0); HEMOGLOBIN 8.3 g/dL (12-16); IMMATURE GRANULOCYTES 0.4 % (0-5); LYMPHOCYTES 27.6 % (15-50); MCH 26.9 pg (26.0-34.0); MCHC 28.3 g/dL (31.0-37.0); MCV 95.1 fL (80.0-100.0); MEAN PLATELET VOLUME 8.2 fL (7.4-10.4); MONOCYTES 12.9 % (2-11); NEUTROPHILS 53.8 % (40-80); PLATELET COUNT 264 10x3/uL (130-400); RBC 3.08 10x6/uL (4.00-5.40); RDW 20.7 % (11.5-14.5); WBC 4.5 10x3/uL (4.8-10.8)
[2019-03-02 07:55] LABS: ALBUMIN 3.4 g/dL (3.4-5.0); ANION GAP 11.2 mmol/L (8-16); BILIRUBIN - TOTAL 0.69 mg/dL (0.2-1.3); CALCIUM 8.6 mg/dL (8.5-10.1); CREATININE - SERUM 1.2 mg/dL (0.6-1.3); POTASSIUM - SERUM 4.2 mmol/L (3.5-5.1); PROTEIN - SERUM 7.2 g/dL (6.4-8.2)
[2019-03-02 09:01] VITALS: BP 124/67
[2019-03-02 13:02] VITALS: BP 117/67
[2019-03-02 16:49] VITALS: BP 120/62
--- NOTE | 2019-03-02 19:31 | NUR ---
PATIENT RESTING IN BED WITH GUEST AT BEDSIDE AND DENIES NEEDS AT THIS TIME. BED IN LOWEST POSITION AND CALL LIGHT WITHIN REACH. ENCOURAGED THE PATIENT TO CALL IF SHE HAS NEEDS. WILL CONTINUE TO MONITOR.
[2019-03-02 20:00] VITALS: BP 126/75
[2019-03-03 04:00] VITALS: BP 129/70
[2019-03-03 06:19] LABS: BASOPHILS 0.6 % (0-2); EOSINOPHILS 4.8 % (0-7); HEMATOCRIT 30.2 % (36.0-48.0); HEMOGLOBIN 8.3 g/dL (12-16); IMMATURE GRANULOCYTES 0.4 % (0-5); LYMPHOCYTES 23.9 % (15-50); MCH 26.5 pg (26.0-34.0); MCHC 27.5 g/dL (31.0-37.0); MCV 96.5 fL (80.0-100.0); MEAN PLATELET VOLUME 8.4 fL (7.4-10.4); MONOCYTES 13.9 % (2-11); NEUTROPHILS 56.4 % (40-80); PLATELET COUNT 280 10x3/uL (130-400); RBC 3.13 10x6/uL (4.00-5.40); RDW 20.9 % (11.5-14.5)
[2019-03-03 07:00] LABS: ALBUMIN 3.2 g/dL (3.4-5.0); ANION GAP 11.1 mmol/L (8-16); BILIRUBIN - TOTAL 0.54 mg/dL (0.2-1.3); CALCIUM 8.4 mg/dL (8.5-10.1); CARBON DIOXIDE 31.2 mmol/L (21.0-32.0); CREATININE - SERUM 1.1 mg/dL (0.6-1.3); POTASSIUM - SERUM 4.3 mmol/L (3.5-5.1); PROTEIN - SERUM 6.9 g/dL (6.4-8.2)
[2019-03-03 08:42] VITALS: BP 123/60
[2019-03-03 13:44] VITALS: BP 117/65
--- NOTE | 2019-03-03 14:53 | NUR ---
PATIENT DRESSING CHANGED AT THIS TIME AND BED BATH GIVEN. PATIENT TOLERATED WITH MODERATE AMOUNT OF PAIN. ONLY WANTS TYLENOL WHICH WAS GIVEN BEFORE STRATED. IV INTACT. HARDIN INTACT. CALL LIGHT WITHIN REACH.
[2019-03-03 17:48] VITALS: BP 117/70
[2019-03-03 19:30] VITALS: BP 117/59
--- NOTE | 2019-03-03 19:43 | NUR ---
PATIENT RESTING IN BED WITH AT BEDSIDE. PATIENT DENIES NEEDS AT THIS TIME. BED IN LOWEST POSITION AND CALL LIGHT WITHIN REACH. ENCOURAGED THE PATIENT TO CALL IF SHE HAS NEEDS. WILL CONTINUE TO MONITOR.
[2019-03-04 05:01] VITALS: BP 110/72
[2019-03-04 05:22] LABS: BASOPHILS 0.4 % (0-2); EOSINOPHILS 4.4 % (0-7); HEMATOCRIT 28.8 % (36.0-48.0); IMMATURE GRANULOCYTES 0.4 % (0-5); LYMPHOCYTES 23.9 % (15-50); MCH 27.2 pg (26.0-34.0); MCHC 27.8 g/dL (31.0-37.0); MEAN PLATELET VOLUME 8.1 fL (7.4-10.4); MONOCYTES 15.7 % (2-11); NEUTROPHILS 55.2 % (40-80); PLATELET COUNT 283 10x3/uL (130-400); RBC 2.94 10x6/uL (4.00-5.40); RDW 21.1 % (11.5-14.5); WBC 4.5 10x3/uL (4.8-10.8)
[2019-03-04 06:10] LABS: ALBUMIN 3.4 g/dL (3.4-5.0); ANION GAP 11.4 mmol/L (8-16); BILIRUBIN - TOTAL 0.52 mg/dL (0.2-1.3); CALCIUM 8.4 mg/dL (8.5-10.1); CARBON DIOXIDE 30.9 mmol/L (21.0-32.0); CREATININE - SERUM 1.1 mg/dL (0.6-1.3); POTASSIUM - SERUM 4.3 mmol/L (3.5-5.1); PROTEIN - SERUM 6.8 g/dL (6.4-8.2)
--- NOTE | 2019-03-04 07:10 | NUR ---
PT RESTING IN BED. NO SIGNS OF DISTRESS. IV TO RIGHT PORT PATENT NO REDNESS OR TENDERNESS. ON 3L NC. HAS HARDIN NO KINKS PATENT. HAS SORES TO BLE. DRESSING INACT. DENIES ANY FURTHER NEED AT THIS TIME. CALL LIGHT IN REACH. BED LOW POSITION. FAMILY AT BEDSIDE AT THIS TIME.
[2019-03-04 08:25] VITALS: BP 116/63
--- NOTE | 2019-03-04 10:29 | NUR ---
I have reviewed this patient and I concur with the Shift Assessment completed by the Licensed Practical Nurse today this shift.
[2019-03-04 13:07] VITALS: BP 131/75
[2019-03-04 16:40] VITALS: BP 118/67
--- NOTE | 2019-03-04 19:15 | NUR ---
PATIENT RESTING IN BED WITH GUEST AT BEDSIDE AND NO S/S OF DISTRESS. PATIENT DENIES NEEDS AT THIS TIME. BED IN LOWEST POSITION AND CALL LIGHT WITHIN REACH. ENCOURAGED THE PATIENT TO CALL IF SHE HAS NEEDS. WILL CONTINUE TO MONITOR.
[2019-03-04 20:30] VITALS: BP 116/56
[2019-03-05 00:22] VITALS: BP 124/72
[2019-03-05 04:45] VITALS: BP 115/61
[2019-03-05 07:04] LABS: BASOPHILS 0.5 % (0-2); EOSINOPHILS 5.9 % (0-7); HEMATOCRIT 29.5 % (36.0-48.0); HEMOGLOBIN 8.2 g/dL (12-16); IMMATURE GRANULOCYTES 0.2 % (0-5); LYMPHOCYTES 25.2 % (15-50); MCH 27.1 pg (26.0-34.0); MCHC 27.8 g/dL (31.0-37.0); MCV 97.4 fL (80.0-100.0); MEAN PLATELET VOLUME 8.6 fL (7.4-10.4); MONOCYTES 11.3 % (2-11); NEUTROPHILS 56.9 % (40-80); PLATELET COUNT 319 10x3/uL (130-400); RBC 3.03 10x6/uL (4.00-5.40); WBC 4.4 10x3/uL (4.8-10.8)
[2019-03-05 09:19] VITALS: BP 128/70
--- NOTE | 2019-03-05 11:23 | MORECARE ---
CASE MANAGEMENT DISCHARGE SUMMARY PATIENT: AMBIKA HOUSE UNIT: [id number] ADM DATE: 02/17/19 AGE: 58 : 62 SEX: F ROOM/BED: D.3765 AUTHOR: SHANNON,DOC PHYSICIAN: REFERRING PHYSICIAN: TONIO DAVILA MD DATE OF SERVICE: 03/05/19 Discharge Plan Patient Name: AMBIKA HOUSE Facility: [facility]:[place] : 1960 Planned Disposition: Anticipated Discharge Date: Discharge Date: Expected LOS: Initial Reviewer: [email or web address] Initial Review Date: 02/19/2019 Generated: 03/05/19 12:23 pm Comments DCP- Discharge Planning Updated by [id number]: Gifty Laguerre on 03/05/19 10:[address] 0945 CM WENT TO THE BEDSIDE TO DISCUSS DISCHARGE PLANNING. PATIENT WAS ON THE BEDPAN. CM SPOKE WITH THE AUTO AIR CONDITIONING INSTALLER. SHE AND THE NURSE ARE PLANNING TO DO HER AM CARE. 0930 AND 0955- TC TO [employer]. CM LEFT VM MESSAGE TO ASCERTAIN WHETHER SHE WOULD QUALIFY FOR MEDICAID OR DISABILITY. AWAIT CB. CM REVIEWED PATIENT PROGRESS , PHYSICAL THERAPY, RESPIRATORY AND NURSING NOTES. PER THE MD THE PATIENT PLANS TO DISCHARGE TO HER DAUGHTER'S HOME. PATIENT IS RECOMMENED FOR BIPAP. SHE IS ON 3/4 LITERS OF NASAL O2. SHE ALSO RECEIVES NEB MEDS. DME PRIOR TO ADMIT- WHEELCHAIR . NO OXYGEN. SHE HAS BILATERAL WOUND CARE FOR CELLULITIS. WOUND CARE CONSULT 02/17/19. CM SPOKE W/ LOIS, THE WOUND CARE NURSE. SHE WILL REVIEW AND ADVISE CM. PATIENT WAS SEEN BY DR FERNANDO 02/26/19 REGARDING LE AND WOUND CARE. PATIENT WITH BED MOBILITY TO BEDSIDE. STOOD FOR A FEW SECONDS W/ PHYSICAL THERAPY THEN MOD ASSIST TO LAY DOWN. TC TO [facility] TO ASCERTAIN IF GARCÍA BED MAYBE AVAILABLE. SPOKE W/ THE MENHADEN VESSEL PILOT, CATHIE CHAVEZ . [facility] IS COVERING FOR [facility]. THEY ARE ALLOW ED TO SERVE ONE GARCÍA CASE AT A TIME. SHE PRESENTLY HAS ONE PATIENT. STATES CAN SEND CLINICAL AND SHE WILL FOLLOW. CM WILL DISCUSS OPTIONS AND PROVIDERS W/ THE PATIENT AND IF SHE SELECTS AND CONSENTS WILL FORWARD REFERRAL. CM SPOKE W/ SHANNAN FROM [employer]. THE PATIENT IS OVERRESOURCE FOR MEDICAID. CM ASK IF SHE COULD APPLY FOR DISABILITY . IF THE MD FEELS DISABILITY IS APPROPRIATE , HE MUST DISCUSS WITH THE PATIENT AND DOCUMENT THE DISABILITIES. THE APPLICATION CAN BE INITIATED FROM THE PATIENT'S BEDSIDE W/ ASSIST OF [employer] DATA COUNSELOR. DCP- Discharge Planning Updated by [email or web address]: Bertha Vivas on 02/19/19 9:[address] Patient Name: AMBIKA HOUSE Admission Status: ER Accout number: [id number] Admission Date: 02-17-2019 : 1960 Admission Diagnosis: Attending: TONIO DAVILA Current LOS: 2 Anticipated DC Date: Planned Disposition: Primary Insurance: UNINSURED DISCOUNT PLAN Discharge Planning Comments: CM met with patient to complete initial dc planning assessment. CM educated patient on the CM role and verbal consent given by patient to complete assessment. Patient lives at home with her where she is independent with her care. At discharge patient plans to return home and feels this is a safe discharge. CM discussed availability of home health, rehab services, and medical equipment. Patient is uninsured stated they are just over income limit and may need assistance upon discharge Patient denied known discharge needs at this time. CM will continue to follow and will assist as needed with dc plans/needs. Manager Military: Bertha Vivas DCPIA - Discharge Planning Initial Assessment Updated by [email or web address]: Bertha Vivas on 02/19/19 9:35 am * Is the patient Alert and Oriented? Yes * How many steps to enter\exit or inside your home? 4-7 * PCP Maverick * Pharmacy [facility] * Preadmission Environment Home with Family * ADLs Independent * Equipment Wheelchair * Other Equipment B/P CUFF * List name and contact numbers for known caregivers / representatives who currently or will assist patient after discharge: SHAKA HOUSE - SPOUSE - [phone] * Verbal permission to speak to the caregivers and representatives has been obtained from the patient. Yes * Community resources currently utilized None * Additional services required to return to the preadmission environment? No * Can the patient safely return to the preadmission environment? Yes * Has this patient been hospitalized within the prior 30 days at any hospital? No Last DP export: 02/19/19 9:07 Patient Name: AMBIKA HOUSE Page 51001 at 1123 All edits/amendments must be made on the electronic document DICTATION DATE: 03/05/191122 CLAIMS ANALYST: LIANNA 03/05/191122 RPT#: [id number] DC DATE: STATUS: ADM IN [facility] [address] [place] [address] END OF REPORT
--- NOTE | 2019-03-05 11:39 | MORECARE ---
CASE MANAGEMENT DISCHARGE SUMMARY PATIENT: AMBIKA HOUSE UNIT: [id number] ADM DATE: 02/17/19 AGE: 58 : 62 SEX: F ROOM/BED: D.9635 AUTHOR: SHANNON,DOC PHYSICIAN: REFERRING PHYSICIAN: TONIO DAVILA MD DATE OF SERVICE: 03/05/19 Discharge Plan Patient Name: AMBIKA HOUSE Facility: [facility]:[place] : 1960 Planned Disposition: Anticipated Discharge Date: Discharge Date: Expected LOS: Initial Reviewer: [email or web address] Initial Review Date: 02/19/2019 Generated: 03/05/19 12:39 pm Comments DCP- Discharge Planning Updated by [email or web address]: Gifty Laguerre on 03/05/19 10:[address] 1118 TC to [facility] in [place], [place]. As per the internet contact center director for admission is Krystal Moya, Clinical Director and Admission at [phone]. No answer. CM left voice mail message w/ contact phone number. DCP- Discharge Planning Updated by [id number]: Gifty Laguerre on 03/05/19 10:[address] 0930 CM WENT TO THE BEDSIDE TO DISCUSS DISCHARGE PLANNING. PATIENT WAS ON THE BEDPAN. CM SPOKE WITH THE HEAD OF ADVERTISING. SHE AND THE NURSE ARE PLANNING TO DO HER AM CARE. 0930 AND 0955- TC TO [employer]. CM LEFT VM MESSAGE TO ASCERTAIN WHETHER SHE WOULD QUALIFY FOR MEDICAID OR DISABILITY. AWAIT CB. CM REVIEWED PATIENT PROGRESS , PHYSICAL THERAPY, RESPIRATORY AND NURSING NOTES. PER THE MD THE PATIENT PLANS TO DISCHARGE TO HER DAUGHTER'S HOME. PATIENT IS RECOMMENED FOR BIPAP. SHE IS ON 3/4 LITERS OF NASAL O2. SHE ALSO RECEIVES NEB MEDS. DME PRIOR TO ADMIT- WHEELCHAIR . NO OXYGEN. SHE HAS BILATERAL WOUND CARE FOR CELLULITIS. WOUND CARE CONSULT 02/17/19. CM SPOKE W/ LOIS, THE WOUND CARE NURSE. SHE WILL REVIEW AND ADVISE JUAREZ. PATIENT WAS SEEN BY DR FERNANDO 02/26/19 REGARDING LE AND WOUND CARE. PATIENT WITH BED MOBILITY TO BEDSIDE. STOOD FOR A FEW SECONDS W/ PHYSICAL THERAPY THEN MOD ASSIST TO LAY DOWN. TC TO [facility] [place] TO ASCERTAIN IF PSYCHIATRIC BED MAYBE AVAILABLE. SPOKE W/ THE WINDOWS SUPPORT ENGINEER, CATHIE CHAVEZ . [facility] IS COVERING FOR [facility]. THEY ARE ALLOW ED TO SERVE ONE GARCÍA CASE AT A TIME. SHE PRESENTLY HAS ONE PATIENT. STATES CAN SEND CLINICAL AND SHE WILL FOLLOW. CM WILL DISCUSS OPTIONS AND PROVIDERS W/ THE PATIENT AND IF SHE SELECTS AND CONSENTS WILL FORWARD REFERRAL. CM SPOKE W/ SHANNAN FROM [employer]. THE PATIENT IS OVERRESOURCE FOR MEDICAID. CM ASK IF SHE COULD APPLY FOR DISABILITY . IF THE MD FEELS DISABILITY IS APPROPRIATE , HE MUST DISCUSS WITH THE PATIENT AND DOCUMENT THE DISABILITIES. THE APPLICATION CAN BE INITIATED FROM THE PATIENT'S BEDSIDE W/ ASSIST OF [employer] DATA COUNSELOR. DCP- Discharge Planning Updated by [email or web address]: Bertha Vivas on 02/19/19 9:[address] Patient Name: AMBIKA HOUSE Admission Status: ER Accout number: [id number] Admission Date: 02-17-2019 : 1960 Admission Diagnosis: Attending: TONIO DAVILA Current LOS: 2 Anticipated DC Date: Planned Disposition: Primary Insurance: UNINSURED DISCOUNT PLAN Discharge Planning Comments: CM met with patient to complete initial dc planning assessment. CM educated patient on the CM role and verbal consent given by patient to complete assessment. Patient lives at home with her where she is independent with her care. At discharge patient plans to return home and feels this is a safe discharge. CM discussed availability of home health, rehab services, and medical equipment. Patient is uninsured stated they are just over income limit and may need assistance upon discharge Patient denied known discharge needs at this time. CM will continue to follow and will assist as needed with dc plans/needs. Cardiovascular Lab Director: Bertha Vivas DCPIA - Discharge Planning Initial Assessment Updated by [email or web address]: Bertha Vivas on 02/19/19 9:35 am * Is the patient Alert and Oriented? Yes * How many steps to enter\exit or inside your home? 4-7 * PCP Maverick * Pharmacy [facility] * Preadmission Environment Home with Family * ADLs Independent * Equipment Wheelchair * Other Equipment B/P CUFF * List name and contact numbers for known caregivers / representatives who currently or will assist patient after discharge: SHAKA HOUSE - SPOUSE - [phone] * Verbal permission to speak to the caregivers and representatives has been obtained from the patient. Yes * Community resources currently utilized None * Additional services required to return to the preadmission environment? No * Can the patient safely return to the preadmission environment? Yes * Has this patient been hospitalized within the prior 30 days at any hospital? No Last DP export: 03/05/19 10:23 Patient Name: AMBIKA HOUSE Page 88720 at 1139 All edits/amendments must be made on the electronic document DICTATION DATE: 03/05/191138 AMMONIA OPERATOR: LIANNA 03/05/191138 RPT#: [id number] DE DATE: STATUS: ADM IN [facility] [address] [place] [address] END OF REPORT
--- NOTE | 2019-03-05 11:49 | NUR ---
Pt has ulcers on bilateral lower legs. Dressing changes are being done daily as per Dr. Palacio's orders. Pt was seeing Dr. Palacio for treatment of these wounds prior to her hospitalization. Dressing changes are daily and are wet to dry using betadine saturated 4x4s, covered with dry 4x4s and wrapped with kerlix.
--- NOTE | 2019-03-05 12:38 | MORECARE ---
CASE MANAGEMENT DISCHARGE SUMMARY PATIENT: AMBIKA HOUSE UNIT: [id number] ADM DATE: 02/17/19 AGE: 58 : 62 SEX: F ROOM/BED: D.7045 AUTHOR: SHANNON,DOC PHYSICIAN: REFERRING PHYSICIAN: TONIO DAVILA MD DATE OF SERVICE: 03/05/19 Discharge Plan Patient Name: AMBIKA HOUSE Facility: [facility]:[place] : 1960 Planned Disposition: Anticipated Discharge Date: Discharge Date: Expected LOS: Initial Reviewer: [email or web address] Initial Review Date: 02/19/2019 Generated: 03/05/19 1:37 pm Comments DCP- Discharge Planning Updated by [id number]: Gifty Laguerre on 03/05/19 11:[address] CM REVISITED THE PATIENT TO DISCUSS DISCHARGE PLANNING. SHE CONSENTS TO PROCEED WITH ASSESSMENT. THE PATIENT WORKED FOR THE [employer] FOR 33 YEARS. SHE HAS ATTEMPTED TO WORK A SUB IN THE [employer]. SHE HAD DIFFICULTY , PAIN AND PROGRESSION OF CELLULITIS AND COULD NOT CONTINUE. 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 SHE CANNOT ASSIST AT PRESENT. HER SON AND SISTER IN LAW ARE ASSISTING AT PRESENT. PATIENT' SON [place] HOME FROM [place] FOR THE HOLIDAYS. SHE HAS PLANNED TO GO TO HER DAUGHTER'S HOME WHICH HAS A HANDICAP BATHROOM AND RAMPS TO ENTER THE HOME. HER LEGS ARE VERY PAINFUL WITH MIMIMAL ACTIVITY. DISCUSS THE FEASILIBILITY OF SUCCESS IN THE HOME. DISCUSSED OTHER OPTIONS. SHE IS OPEN TO LTAC SETTING . SHE DOES NOT WANT TO BE IN A "PRISON". CM EXPLAINED ABOUT DRAWER MAKER CARE AND SKILLED CARE. PATIENT VOICES CONCERNS BECAUSE SHE HAS NO INSURANCE. CM ASK IF SHE HAD CONSIDERED APPLYING FOR DISABILITY. THE PATIENT STATES SHE WAS ILL AND MEMORY WAS POOR BUT SHE THINKS SHE HAD A PHONE INTERVIEW 02/08/19 FOR DISABILITY. CM LEFT A VOICEMAIL MESSAGE FOR SHANNAN WITH [employer]. DR DAVILA AND DR FERNANDO ARE THE PHYSICIANS SHE SEES. [facility] CM SPOKE WILL OBTAIN PATIENT CHOICE FORM FOR LTAC REFERRAL. CM SPOKE W/ THE WOUND CARE NURSE. SHE WAS ON THE FLOOR TO FOLLOW UP. DCP- Discharge Planning Updated by [id number]: Gifty Laguerre on 03/05/19 10:[address] 1118 TC to [facility] in [place], [place]. As per the internet salesperson wigs for admission is Krystal Moya, Clinical Director and Admission at [phone]. No answer. CM left voice mail message w/ contact phone number. DCP- Discharge Planning Updated by [email or web address]: Gifty Laguerre on 03/05/19 10:[address] 0945 CM WENT TO THE BEDSIDE TO DISCUSS DISCHARGE PLANNING. PATIENT WAS ON THE BEDPAN. CM SPOKE WITH THE PUBLIC FINANCE SPECIALIST. SHE AND THE NURSE ARE PLANNING TO DO HER AM CARE. 0930 AND 09- TC TO [employer]. CM LEFT VM MESSAGE TO ASCERTAIN WHETHER SHE WOULD QUALIFY FOR MEDICAID OR DISABILITY. AWAIT CB. CM REVIEWED PATIENT PROGRESS , PHYSICAL THERAPY, RESPIRATORY AND NURSING NOTES. PER THE MD THE PATIENT PLANS TO DISCHARGE TO HER DAUGHTER'S HOME. PATIENT IS RECOMMENED FOR BIPAP. SHE IS ON 3/4 LITERS OF NASAL O2. SHE ALSO RECEIVES [facility]. DME PRIOR TO ADMIT- WHEELCHAIR . NO OXYGEN. SHE HAS BILATERAL WOUND CARE FOR CELLULITIS. WOUND CARE CONSULT 02/17/19. CM SPOKE W/ LOIS, THE WOUND CARE NURSE. SHE WILL REVIEW AND ADVISE CM. PATIENT WAS SEEN BY DR FERNANDO 02/26/19 REGARDING LE AND WOUND CARE. PATIENT WITH BED MOBILITY TO BEDSIDE. STOOD FOR A FEW SECONDS W/ PHYSICAL THERAPY THEN MOD ASSIST TO LAY DOWN. TC TO [facility] TO ASCERTAIN IF GARCÍA BED MAYBE AVAILABLE. SPOKE W/ THE COMPUTER APPLICATIONS INSTRUCTOR, CATHIE CHAVEZ . [facility] IS COVERING FOR [facility]. THEY ARE ALLOW ED TO SERVE ONE GARCÍA CASE AT A TIME. SHE PRESENTLY HAS ONE PATIENT. STATES CAN SEND CLINICAL AND SHE WILL FOLLOW. CM WILL DISCUSS OPTIONS AND PROVIDERS W/ THE PATIENT AND IF SHE SELECTS AND CONSENTS WILL FORWARD REFERRAL. CM SPOKE W/ SHANNAN FROM [employer]. THE PATIENT IS OVERRESOURCE FOR MEDICAID. CM ASK IF SHE COULD APPLY FOR DISABILITY . IF THE MD FEELS DISABILITY IS APPROPRIATE , HE MUST DISCUSS WITH THE PATIENT AND DOCUMENT THE DISABILITIES. THE APPLICATION CAN BE INITIATED FROM THE PATIENT'S BEDSIDE W/ ASSIST OF [employer] DATA COUNSELOR. DCP- Discharge Planning Updated by [email or web address]: Bertha Vivas on 02/19/19 9:[address] Patient Name: AMBIKA HOUSE Admission Status: ER Accout number: [id number] Admission Date: 02-17-2019 : 1960 Admission Diagnosis: Attending: TONIO DAVILA Current LOS: 2 Anticipated DC Date: Planned Disposition: Primary Insurance: UNINSURED DISCOUNT PLAN Discharge Planning Comments: CM met with patient to complete initial dc planning assessment. CM educated patient on the CM role and verbal consent given by patient to complete assessment. Patient lives at home with her where she is independent with her care. At discharge patient plans to return home and feels this is a safe discharge. CM discussed availability of home health, rehab services, and medical equipment. Patient is uninsured stated they are just over income limit and may need assistance upon discharge Patient denied known discharge needs at this time. CM will continue to follow and will assist as needed with dc plans/needs. Tool Design Draftsperson: Bertha Vivas DCPIA - Discharge Planning Initial Assessment Updated by [email or web address]: Bertha Vivas on 02/19/19 9:35 am * Is the patient Alert and Oriented? Yes * How many steps to enter\\exit or inside your home? 4-7 * PCP Maverick * Pharmacy [facility] * Preadmission Environment Home with Family * ADLs Independent * Equipment Wheelchair * Other Equipment B/P CUFF * List name and contact numbers for known caregivers / representatives who currently or will assist patient after discharge: SHAKA HOUSE - SPOUSE - [phone] * Verbal permission to speak to the caregivers and representatives has been obtained from the patient. Yes * Community resources currently utilized None * Additional services required to return to the preadmission environment? No * Can the patient safely return to the preadmission environment? Yes * Has this patient been hospitalized within the prior 30 days at any hospital? No Last DP export: 03/05/19 10:39 Patient Name: AMBIKA HOUSE Page 92519 at 1238 All edits/amendments must be made on the electronic document DICTATION DATE: 03/05/19 1237 VIDEOGAME DESIGNER: LIANNA 03/05/19 1237 RPT#: [id number] DC DATE: STATUS: ADM IN [facility] [address] [facility] [place] [address] END OF REPORT
--- NOTE | 2019-03-05 13:21 | MORECARE ---
CASE MANAGEMENT DISCHARGE SUMMARY PATIENT: AMBIKA HOUSE UNIT: [id number] ADM DATE: 02/17/19 AGE: 58 : 62 SEX: F ROOM/BED: D.5491 AUTHOR: SHANNON,DOC PHYSICIAN: REFERRING PHYSICIAN: TONIO DAVILA MD DATE OF SERVICE: 03/05/19 Discharge Plan Patient Name: AMBIKA HOUSE Facility: [facility]:[place] : 1960 Planned Disposition: Anticipated Discharge Date: Discharge Date: Expected LOS: Initial Reviewer: [id number] Initial Review Date: 02/19/2019 Generated: 03/05/19 2:21 pm Comments DCP- Discharge Planning Updated by [id number]: Gifty Laguerre on 03/05/19 12:[address] PATIENT CHOICE FORM OBTAINED. SIGNED COPY TO THE PATIENT AND SIGNED COPY TO THE HARD CHART. CM FAXED REFERRAL TO [facility]. AWAIT CB FROM [facility] REGRADING REFERRAL IF APPROPRIATE. MED DATA TO FOLLOW UP REGARDING DISABILITY APPLICATION VIA PHONE INTERVIEW. OT EVAL PENDING. MD DOCUMENTATION REGARDING DISABILITY PROGNOSIS PENDING. DCP- Discharge Planning Updated by [id number]: Gifty Laguerre on 03/05/19 11:[address] CM REVISITED THE PATIENT TO DISCUSS DISCHARGE PLANNING. SHE CONSENTS TO PROCEED WITH ASSESSMENT. THE PATIENT WORKED FOR THE [employer] FOR 33 YEARS. 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 SHE HAD DIFFICULTY , PAIN AND PROGRESSION OF CELLULITIS AND COULD NOT CONTINUE. 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 SHE CANNOT ASSIST AT PRESENT. HER SON AND SISTER IN LAW ARE ASSISTING AT PRESENT. PATIENT' SON IS HOME FROM COLLEGE FOR THE HOLIDAYS. SHE HAS PLANNED TO GO TO HER DAUGHTER'S HOME WHICH HAS A HANDICAP BATHROOM AND RAMPS TO ENTER THE HOME. HER LEGS ARE VERY PAINFUL WITH MIMIMAL ACTIVITY. DISCUSS THE FEASILIBILITY OF SUCCESS IN THE HOME. DISCUSSED OTHER OPTIONS. SHE IS OPEN TO LTAC SETTING . SHE DOES NOT WANT TO BE IN A "FCI". CM EXPLAINED ABOUT TAILOR HELPER CARE AND SKILLED CARE. PATIENT VOICES CONCERNS BECAUSE SHE HAS NO INSURANCE. CM ASK IF SHE HAD CONSIDERED APPLYING FOR DISABILITY. THE PATIENT STATES SHE WAS ILL AND MEMORY WAS POOR BUT SHE THINKS SHE HAD A PHONE INTERVIEW 02/08/19 FOR DISABILITY. CM LEFT A VOICEMAIL MESSAGE FOR SHANNAN WITH MED DATA. DR DAVILA AND DR FERNANDO ARE THE PHYSICIANS SHE SEES. [facility] CM SPOKE WILL OBTAIN PATIENT CHOICE FORM FOR LTAC REFERRAL. CM SPOKE W/ THE WOUND CARE NURSE. SHE WAS ON THE FLOOR TO FOLLOW UP. DCP- Discharge Planning Updated by [id number]: Gifty Laguerre on 03/05/19 10:[address] 1118 TC to [facility] in [place], [place]. As per the internet overnight houseperson for admission is Krystal Moya, Clinical Director and Admission at [phone]. No answer. CM left voice mail message w/ contact phone number. DCP- Discharge Planning Updated by [id number]: Gifty Laguerre on 03/05/19 10:[address] 0945 CM WENT TO THE BEDSIDE TO DISCUSS DISCHARGE PLANNING. PATIENT WAS ON THE BEDPAN. CM SPOKE WITH THE PIPE INSULATOR HELPER. SHE AND THE NURSE ARE PLANNING TO DO HER AM CARE. 0930 AND 0955- TC TO [employer]. CM LEFT VM MESSAGE TO ASCERTAIN WHETHER SHE WOULD QUALIFY FOR MEDICAID OR DISABILITY. AWAIT CB. CM REVIEWED PATIENT PROGRESS , PHYSICAL THERAPY, RESPIRATORY AND NURSING NOTES. PER THE MD THE PATIENT PLANS TO DISCHARGE TO HER DAUGHTER'S HOME. PATIENT IS RECOMMENED FOR BIPAP. SHE IS ON 3/4 LITERS OF NASAL O2. SHE ALSO RECEIVES NEB MEDS. DME PRIOR TO ADMIT- WHEELCHAIR . NO OXYGEN. SHE HAS BILATERAL WOUND CARE FOR CELLULITIS. WOUND CARE CONSULT 02/17/19. CM SPOKE W/ LOIS, THE WOUND CARE NURSE. SHE WILL REVIEW AND ADVISE CM. PATIENT WAS SEEN BY DR FERNANDO 02/26/19 REGARDING LE AND WOUND CARE. PATIENT WITH BED MOBILITY TO BEDSIDE. STOOD FOR A FEW SECONDS W/ PHYSICAL THERAPY THEN MOD ASSIST TO LAY DOWN. TC TO [facility] TO ASCERTAIN IF GARCÍA BED MAYBE AVAILABLE. SPOKE W/ THE ELECTROLYSIS NEEDLE OPERATOR, CATHIE CHAVEZ . [facility] IS COVERING FOR [facility]. THEY ARE ALLOW ED TO SERVE ONE GARCÍA CASE AT A TIME. SHE PRESENTLY HAS ONE PATIENT. [facility] CAN SEND CLINICAL AND SHE WILL FOLLOW. CM WILL DISCUSS OPTIONS AND PROVIDERS W/ THE PATIENT AND IF SHE SELECTS AND CONSENTS WILL FORWARD REFERRAL. CM SPOKE W/ SHANNAN FROM [employer]. THE PATIENT IS OVERRESOURCE FOR MEDICAID. CM ASK IF SHE COULD APPLY FOR DISABILITY . IF THE MD FEELS DISABILITY IS APPROPRIATE , HE MUST DISCUSS WITH THE PATIENT AND DOCUMENT THE DISABILITIES. THE APPLICATION CAN BE INITIATED FROM THE PATIENT'S BEDSIDE W/ ASSIST OF [employer] DATA COUNSELOR. DCP- Discharge Planning Updated by [email or web address]: Bertha Vivas on 02/19/19 9:[address] Patient Name: AMBIKA HOUSE Admission Status: ER Accout number: [id number] Admission Date: 02-17-2019 : 1960 Admission Diagnosis: Attending: TONIO DAVILA Current LOS: 2 Anticipated DC Date: Planned Disposition: Primary Insurance: UNINSURED DISCOUNT PLAN Discharge Planning Comments: CM met with patient to complete initial dc planning assessment. CM educated patient on the CM role and verbal consent given by patient to complete assessment. Patient lives at home with her where she is independent with her care. At discharge patient plans to return home and feels this is a safe discharge. CM discussed availability of home health, rehab services, and medical equipment. Patient is uninsured stated they are just over income limit and may need assistance upon discharge Patient denied known discharge needs at this time. CM will continue to follow and will assist as needed with dc plans/needs. Production Internship: Bertha Vivas DCPIA - Discharge Planning Initial Assessment Updated by [id number]: Bertha Vivas on 02/19/19 9:35 am * Is the patient Alert and Oriented? Yes * How many steps to enter\\exit or inside your home? 4-7 * PCP [place] * Pharmacy [facility] * Preadmission Environment Home with Family * ADLs Independent * Equipment Wheelchair * Other Equipment B/P CUFF * List name and contact numbers for known caregivers / representatives who currently or will assist patient after discharge: SHAKA HOUSE - SPOUSE - [phone] * Verbal permission to speak to the caregivers and representatives has been obtained from the patient. Yes * Community resources currently utilized None * Additional services required to return to the preadmission environment? No * Can the patient safely return to the preadmission environment? Yes * Has this patient been hospitalized within the prior 30 days at any hospital? No Coverage Notice Reviewer: [id number] - Gifty Laguerre Notice Issued Date-Time: 03/05/2019 12:48 Notice Type: Patient Choice Letter Notice Delivered To: Patient Relationship to Patient: Self Diesel Service Technician Name: Delivery Method: HAND - Hand Delivered Pamela Days: Prior Verbal Notification: Recipient Understood Notice: Yes Recipient Signature: Yes Med Rec Note Co-signed by Attending: Coverage Notice Comment: CM DISCUSSED LTAC AND PROVIDERS. PRESENTED LIST WITH PATIENT CHOICE FORM. PATIENT HAD NO QUESTIONS, VOICED NO CONCERNS. ORIGINAL SIGNED CONSENT TO THEHARD COVER CHART. ORIGINAL SIGNED CONSENT TO THE PATIENT. Last DP export: 03/05/19 11:38 Patient Name: AMBIKA HOUSE Page [id number] at 1321 All edits/amendments must be made on the electronic document DICTATION DATE: 03/05/19 1321 RELAY TECHNICIAN: LIANNA 03/05/19 1321 RPT#: [id number] DC DATE: STATUS: ADM IN [facility] [address] [place] [address] END OF REPORT
--- NOTE | 2019-03-05 16:27 | NUR ---
OT NOTE: PT REQUIRED MIN/MOD A FOR LE MANAGEMENT FOR SUPINE TO SIT. PT COMPLETED EOB SITTING WITH SBA. PT COMPLETED SIT TO STAND WITH MOD A X2. PT REQUIRED MAX A WITH LB HYGIENE TASK. PT COMPLETED BUE STRENGTHENING USING TRAP BAR. FAMILY PRESENT. PT DID VERY WELL TODAY. 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 [phone] THANK YOU, ABHILASH JURADO
[2019-03-05 18:05] VITALS: BP 133/68
[2019-03-05 20:52] VITALS: BP 114/51
[2019-03-06 00:30] VITALS: BP 118/54
--- NOTE | 2019-03-06 01:33 | NUR ---
ALERT AND ORENTED ABLE TO VOICE NEEDS TO STAFF. REDNESS AND EDEMA PRESENT TO LOWER ABD AND LEGS. bI -PAP USING FOR 4-5 HR A NIGHT. CALL LIGHT AND WATER IN REACH. FAMILY AT BEDSIDE.
[2019-03-06 05:30] VITALS: BP 121/62
[2019-03-06 08:08] VITALS: BP 136/70
--- NOTE | 2019-03-06 09:00 | NUR ---
ASSESSMENT PER FLOW SHEET. PT IS WITHOUT DISTRESS.MONITOR FOR NEEDS
[2019-03-06 12:18] VITALS: BP 112/60
--- NOTE | 2019-03-06 19:30 | NUR ---
REMAINS WITHOUT NEEDS,WITHOUT CHANDE.CONT PLAN OF CARE
[2019-03-06 20:58] VITALS: BP 118/61
--- NOTE | 2019-03-06 21:00 | NUR ---
FSBS 123 NO COVERAGE NEEDED AT THIS TIME.
[2019-03-07] VITALS: BP 129/63
--- NOTE | 2019-03-07 02:29 | NUR ---
PT RESTING IN BED. ALERT AND ORIENTED. NO SIGNS OF DISTRESS. BREATHING EVEN AND UNLABORED. PT STATES NO PROBLEMS AT THIS TIME. IV SITE RT CHEST CENTRAL LINE. DRESSING CLEAN DRY AND INTACT. NO SIGNS OF INFECTION. 1LO2 NASAL CANNULA. TELE MONTIOR ON 87 FLUTTER. GROIN REDDNESS. LT AND RT LOWER LEG SWELLING REDDNESS. DRESSINGS CLEAN DRY AND INTACT. WILL CONTINUE PLAN OF CARE. CALL LIGHT IN REACH. BED LOWERED AND LOCKED. BED RAILS UPX2.
--- NOTE | 2019-03-07 03:00 | NUR ---
I have reviewed this patient and I concur with the Shift Assessment completed by the Licensed Practical Nurse today this shift.
[2019-03-07 04:00] VITALS: BP 125/70
[2019-03-07 06:42] LABS: BASOPHILS 0.5 % (0-2); EOSINOPHILS 6.4 % (0-7); HEMATOCRIT 28.4 % (36.0-48.0); HEMOGLOBIN 8.1 g/dL (12-16); IMMATURE GRANULOCYTES 0.2 % (0-5); LYMPHOCYTES 23.6 % (15-50); MCH 27.4 pg (26.0-34.0); MCHC 28.5 g/dL (31.0-37.0); MCV 95.9 fL (80.0-100.0); MEAN PLATELET VOLUME 8.2 fL (7.4-10.4); MONOCYTES 12.1 % (2-11); NEUTROPHILS 57.2 % (40-80); PLATELET COUNT 305 10x3/uL (130-400); RBC 2.96 10x6/uL (4.00-5.40); RDW 21.2 % (11.5-14.5); WBC 4.4 10x3/uL (4.8-10.8)
[2019-03-07 07:03] LABS: CALCIUM 8.3 mg/dL (8.5-10.1); CARBON DIOXIDE 31.1 mmol/L (21.0-32.0); CREATININE - SERUM 1.3 mg/dL (0.6-1.3); POTASSIUM - SERUM 4.1 mmol/L (3.5-5.1)
[2019-03-07 10:12] VITALS: BP 111/62
--- NOTE | 2019-03-07 10:34 | NUR ---
NUTRITION F/U PT TOLERATING DIABETIC DIET WITH 100% INTAKE RECENT MEALS. WILL CONTINUE TO PROVIDE DIET, MONITOR PO INTAKE. RD FOLLOWING
--- NOTE | 2019-03-07 11:57 | OP ---
PATIENT NAME: MABIKA HOUSE MEDICAL RECORD: [id number] :62 LOCATION:D[address] [id number] ADMISSION DATE:02/17/19 SURGEON: JORGE L SARKAR MD DATE OF OPERATION: 02/17/2019 PREOPERATIVE DIAGNOSES: 1. Need for IV access. 2. Sepsis. 3. Open infected wounds of the bilateral lower extremities. 4. Pre-diabetic. 5. Urinary tract infection. 6. Morbid obesity. 7. Hypertension. POSTOPERATIVE DIAGNOSES: 1. Need for IV access. 2. Sepsis. 3. Open infected wounds of the bilateral lower extremities. 4. Pre-diabetic. 5. Urinary tract infection. 6. Morbid obesity. 7. Hypertension. PROCEDURE: Right subclavian vein triple-lumen central venous line placement. SURGEON: Jorg eL Sarkar MD REPORT OF PROCEDURE: The patient's right chest was prepped and draped in sterile fashion. A total of 5 mL of 1% lidocaine with epinephrine was infused into the surrounding tissues. A needle was then used to cannulate the right subclavian vein and a guidewire was advanced with ease. A dilator was then placed over the wire followed by the triple-lumen catheter. The catheter aspirated nonpulsatile dark blood and flushed easily in all 3 ports. The catheter was sutured into place with 3-0 nylons and dressed appropriately. COMPLICATIONS: None. CONDITION: Stable. ANESTHESIA: Local. BLOOD LOSS: Minimal. Procedure done in the ICU at the bedside. TRANSINT:[id number] Voice Confirmation ID: [id number] DOCUMENT ID: [id number] OPERATIVE REPORT [id number] AMBIKA HOUSE JORGE L SARKAR MD at 1157 CC: [id number] DICTATION DATE: 02/17/19 1339 TUBE FILLER: 02/17/19 2311 ADM IN [place] [place] [id number] [place] [address]
[2019-03-07 12:47] VITALS: BP 117/57
--- NOTE | 2019-03-07 13:52 | MORECARE ---
CASE MANAGEMENT DISCHARGE SUMMARY PATIENT: AMBIKA HOUSE UNIT: [id number] ADM DATE: 02/17/19 AGE: 58 : 62 SEX: F ROOM/BED: D.2215 AUTHOR: SHANNON,DOC PHYSICIAN: REFERRING PHYSICIAN: TONIO DAVILA MD DATE OF SERVICE: 03/07/19 Discharge Plan Patient Name: AMBIKA HOUSE Facility: [facility]:[place] : 1960 Planned Disposition: Anticipated Discharge Date: Discharge Date: Expected LOS: Initial Reviewer: [email or web address] Initial Review Date: 02/19/2019 Generated: 03/07/19 2:52 pm Comments DCP- Discharge Planning Updated by [id number]: Melanie Noland on 03/07/19 12:[address] I spoke with Laurence at [facility] in [place] about patient. Laurence states they do not currently have an indigent bed available, but their should be availability tomorrow or beginning next week. I will call back daily. I left a message at [facility] for Jennifer to inquire about an indigent bed there and left my call back number. Jennifer at [facility] - [phone] [facility] - [phone] or [phone] DCP- Discharge Planning Updated by [id number]: Gifty Laguerre on 03/05/19 12:[address] PATIENT CHOICE FORM OBTAINED. SIGNED COPY TO THE PATIENT AND SIGNED COPY TO THE HARD CHART. CM FAXED REFERRAL TO [facility]. AWAIT CB FROM [facility] REGRADING REFERRAL IF APPROPRIATE. MED DATA TO FOLLOW UP REGARDING DISABILITY APPLICATION VIA PHONE INTERVIEW. OT EVAL PENDING. MD DOCUMENTATION REGARDING DISABILITY PROGNOSIS PENDING. DCP- Discharge Planning Updated by [id number]: Gifty Laguerre on 03/05/19 11:[address] CM REVISITED THE PATIENT TO DISCUSS DISCHARGE PLANNING. SHE CONSENTS TO PROCEED WITH ASSESSMENT. THE PATIENT WORKED FOR THE [employer] FOR 33 YEARS. 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 SHE HAD DIFFICULTY , PAIN AND PROGRESSION OF CELLULITIS AND COULD NOT CONTINUE. 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 SHE CANNOT ASSIST AT PRESENT. HER SON AND SISTER IN LAW ARE ASSISTING AT PRESENT. PATIENT' SON IS HOME FROM COLLEGE FOR THE HOLIDAYS. SHE HAS PLANNED TO GO TO HER DAUGHTER'S HOME WHICH HAS A HANDICAP BATHROOM AND RAMPS TO ENTER THE HOME. HER LEGS ARE VERY PAINFUL WITH MIMIMAL ACTIVITY. DISCUSS THE FEASILIBILITY OF SUCCESS IN THE HOME. DISCUSSED OTHER OPTIONS. SHE IS OPEN TO LTAC SETTING . SHE DOES NOT WANT TO BE IN A "LONG-TERM". CM EXPLAINED ABOUT LONG-TERM CARE AND SKILLED CARE. PATIENT VOICES CONCERNS BECAUSE SHE HAS NO INSURANCE. CM ASK IF SHE HAD CONSIDERED APPLYING FOR DISABILITY. THE PATIENT STATES SHE WAS ILL AND MEMORY WAS POOR BUT SHE THINKS SHE HAD A PHONE INTERVIEW 02/08/19 FOR DISABILITY. CM LEFT A VOICEMAIL MESSAGE FOR SHANNAN WITH [employer] [facility]. DR DAVILA AND DR FERNANDO ARE THE PHYSICIANS SHE SEES. [facility] CM SPOKE WILL OBTAIN PATIENT CHOICE FORM FOR LTAC REFERRAL. CM SPOKE W/ THE WOUND CARE NURSE. SHE WAS ON THE FLOOR TO FOLLOW UP. DCP- Discharge Planning Updated by [id number]: Gifty Laguerre on 03/05/19 10:[address] 1118 TC to [facility] in [place], [place]. As per the internet contact center analyst for admission is Krystal Moya, Clinical Director and Admission at [phone]. No answer. CM left voice mail message w/ contact phone number. DCP- Discharge Planning Updated by [id number]: Gifty Laguerre on 03/05/19 10:[address] 0945 CM WENT TO THE BEDSIDE TO DISCUSS DISCHARGE PLANNING. PATIENT WAS ON THE BEDPAN. CM SPOKE WITH THE RESERVOIR ENGINEERING MANAGER. SHE AND THE NURSE ARE PLANNING TO DO HER AM CARE. 0930 AND 0955- TC TO [employer] [facility]. CM LEFT VM MESSAGE TO ASCERTAIN WHETHER SHE WOULD QUALIFY FOR MEDICAID OR DISABILITY. AWAIT CB. CM REVIEWED PATIENT PROGRESS , PHYSICAL THERAPY, RESPIRATORY AND NURSING NOTES. PER THE MD THE PATIENT PLANS TO DISCHARGE TO HER DAUGHTER'S HOME. PATIENT IS RECOMMENED FOR BIPAP. SHE IS ON 3/4 LITERS OF NASAL O2. SHE ALSO RECEIVES NEB MEDS. DME PRIOR TO ADMIT- WHEELCHAIR . NO OXYGEN. SHE HAS BILATERAL WOUND CARE FOR CELLULITIS. WOUND CARE CONSULT 02/17/19. CM SPOKE W/ LOIS, THE WOUND CARE NURSE. SHE WILL REVIEW AND ADVISE CM. PATIENT WAS SEEN BY DR FERNANDO 02/26/19 REGARDING LE AND WOUND CARE. PATIENT WITH BED MOBILITY TO BEDSIDE. STOOD FOR A FEW SECONDS W/ PHYSICAL THERAPY THEN MOD ASSIST TO LAY DOWN. TC TO [facility] TO ASCERTAIN IF GARCÍA BED MAYBE AVAILABLE. SPOKE W/ THE PLASTERER JOURNEYMAN, LAURENCE CHAVEZ . [facility] IS COVERING FOR [facility]. THEY ARE ALLOW ED TO SERVE ONE GARCÍA CASE AT A TIME. SHE PRESENTLY HAS ONE PATIENT. STATES CAN SEND CLINICAL AND SHE WILL FOLLOW. CM WILL DISCUSS OPTIONS AND PROVIDERS W/ THE PATIENT AND IF SHE SELECTS AND CONSENTS WILL FORWARD REFERRAL. CM SPOKE W/ SHANNAN FROM [employer]. THE PATIENT IS OVERRESOURCE FOR MEDICAID. CM ASK IF SHE COULD APPLY FOR DISABILITY . IF THE MD FEELS DISABILITY IS APPROPRIATE , HE MUST DISCUSS WITH THE PATIENT AND DOCUMENT THE DISABILITIES. THE APPLICATION CAN BE INITIATED FROM THE PATIENT'S BEDSIDE W/ ASSIST OF [employer] DATA COUNSELOR. DCP- Discharge Planning Updated by [id number]: Bertha Vivsa on 02/19/19 9:[address] Patient Name: AMBIKA HOUSE Admission Status: ER Accout number: [id number] Admission Date: 02-17-2019 : 1960 Admission Diagnosis: Attending: TONIO DAVILA Current LOS: 2 Anticipated DC Date: Planned Disposition: Primary Insurance: UNINSURED DISCOUNT PLAN Discharge Planning Comments: CM met with patient to complete initial dc planning assessment. CM educated patient on the CM role and verbal consent given by patient to complete assessment. Patient lives at home with her where she is independent with her care. At discharge patient plans to return home and feels this is a safe discharge. CM discussed availability of home health, rehab services, and medical equipment. Patient is uninsured stated they are just over income limit and may need assistance upon discharge Patient denied known discharge needs at this time. CM will continue to follow and will assist as needed with dc plans/needs. Laborer Cheesemaking: Bertha Vivas DCPIA - Discharge Planning Initial Assessment Updated by [id number]: Bertha Vivas on 02/19/19 9:35 am * Is the patient Alert and Oriented? Yes * How many steps to enter\\exit or inside your home? 4-7 * PCP [facility] * Pharmacy [facility] * Preadmission Environment Home with Family * ADLs Independent * Equipment Wheelchair * Other Equipment B/P CUFF * List name and contact numbers for known caregivers / representatives who currently or will assist patient after discharge: SHAKA HOUSE - SPOUSE - [phone] * Verbal permission to speak to the caregivers and representatives has been obtained from the patient. Yes * Community resources currently utilized None * Additional services required to return to the preadmission environment? No * Can the patient safely return to the preadmission environment? Yes * Has this patient been hospitalized within the prior 30 days at any hospital? No Coverage Notice Reviewer: [email or web address] Cristian Laguerre Notice Issued Date-Time: 03/05/2019 12:48 Notice Type: Patient Choice Letter Notice Delivered To: Patient Relationship to Patient: Self Director Of Tax Services Name: Delivery Method: HAND - Hand Delivered Pamela Days: Prior Verbal Notification: Recipient Understood Notice: Yes Recipient Signature: Yes Med Rec Note Co-signed by Attending: Coverage Notice Comment: CM DISCUSSED LTAC AND PROVIDERS. PRESENTED LIST WITH PATIENT CHOICE FORM. PATIENT HAD NO QUESTIONS, VOICED NO CONCERNS. ORIGINAL SIGNED CONSENT TO THEHARD COVER CHART. ORIGINAL SIGNED CONSENT TO THE PATIENT. Last DP export: 03/05/19 12:21 Patient Name: AMBIKA HOUSE Page [phone] at 1352 All edits/amendments must be made on the electronic document DICTATION DATE: 03/07/19 1352 SOFTWARE DEVELOPMENT SPECIALIST: LIANNA 03/07/19 1352 RPT#: [id number] DC DATE: STATUS: ADM IN [facility] [address] [place] [address] END OF REPORT
--- NOTE | 2019-03-07 15:52 | NUR ---
OT NOTE: PT PERFORMED VERY WELL TODAY. BED MOB WITH EXTENDED TIME REQUIRED, BUT SHE WAS ABLE TO PERFORM SUPINE TO SIT WITH USE OF BED RAILS ONLY.. NO PHYSICAL ASSIST FROM THERAPY. EOB SITTING WITH GOOD BALANCE; SIT TO STAND WITH MIN/MOD ASSIST X 2 AND USE OF WALKER. TODAY PT WAS ABLE TO TAKE APPROX 4-5 SIDE STEPS WITH 1 SIT DOWN REST BREAKS. REPORTS SEVERE PAIN IN LES/FEET. PRACTICED GETTING BACK IN BED AND TODAY PT WAS ABLE TO GET HER FEET INTO BED WITHOUT ASSIST. EDUCATED PT ON USE OF TRAPEZE BAR FOR REPOSITIONING AND UE STRENGTHENING. PT ABLE TO KAMALA GOWN AND ROBE WITH MIN ASSIST; SIMPLE GROOMING WITH SET UP. PT VERY MOTIVATED.. IMPROVING DAILY. SAUD ABDULLAHI, OTR/L [phone]
[2019-03-07 17:31] VITALS: BP 122/65
--- NOTE | 2019-03-07 19:06 | NUR ---
DRESSING CHANGES BETTER THIS AFTERNOON COMPARED TO YESTERDAY.REMAINS WITHOUT CHANGE. CONT PLAN OF CARE
[2019-03-07 20:00] VITALS: BP 118/55
[2019-03-08] VITALS: BP 120/63
--- NOTE | 2019-03-08 03:27 | NUR ---
PT RESTING IN BED. EYES CLOSED. NO SIGNS OF DISTRESS. BREATHING EVEN AND UNLABORED. 1LO2 NASAL CANNULA. PT DID DO HER 5 HOURS ON BIPAP. TENA SOUNDS DIMINISHED. TELE MONITOR ON 86 FLUTTER. BOWEL SOUNDS ACTIVE. IV SITE RT CHEST CENTRAL LINE. DRESSING CLEAN DRY AND INTACT. NO SIGNS OF INFECTION. REDDNESS IN GROIN LEGS AND BUTTOCKS. LOWER LEGS DRESSING CLEAN DRY AND INTACT. WILL CONTINUE PLAN OF CARE. CALL LIGHT IN REACH. BED LOWERED AND LOCKED. BED RAILS UP X2. AT BEDSIDE.
[2019-03-08 04:00] VITALS: BP 140/74
--- NOTE | 2019-03-08 04:19 | NUR ---
I have reviewed this patient and I concur with the Shift Assessment completed by the Licensed Practical Nurse today this shift.
--- NOTE | 2019-03-08 08:00 | NUR ---
ASSESSMENT PER FLOW SHEET. PT IS WITHOUT DISTRESS.MONITOR FOR NEEDS.
--- NOTE | 2019-03-08 08:00 | MORECARE ---
CASE MANAGEMENT DISCHARGE SUMMARY PATIENT: AMBIKA HOUSE UNIT: [id number] ADM DATE: 02/17/19 AGE: 58 : 62 SEX: F ROOM/BED: D.2215 AUTHOR: SHANNON,DOC PHYSICIAN: REFERRING PHYSICIAN: TONIO DAVILA MD DATE OF SERVICE: 03/08/19 Discharge Plan Patient Name: AMBIKA HOUSE Facility: [facility]:[place] : 1960 Planned Disposition: Anticipated Discharge Date: Discharge Date: Expected LOS: Initial Reviewer: [email or web address] Initial Review Date: 02/19/2019 Generated: 03/08/19 8:59 am Comments DCP- Discharge Planning Updated by [id number]: Melanie Noland on 03/08/19 6:[address] Updated clinical faxed to [facility] in [place]. CM will continue to follow and assist with discharge planning/needs. DCP- Discharge Planning Updated by [id number]: Melanie Noland on 03/07/19 12:[address] I spoke with Laurence at [facility] in [place] about patient. Laurence states they do not currently have an indigent bed available, but their should be availability tomorrow or beginning next week. I will call back daily. I left a message at [facility] for Jennifer to inquire about an indigent bed there and left my call back number. Jennifer at [facility] - [phone] Laurence at [facility] - [phone] or [phone] DCP- Discharge Planning Updated by [id number]: Gifty Laguerre on 03/05/19 12:[address] PATIENT CHOICE FORM OBTAINED. SIGNED COPY TO THE PATIENT AND SIGNED COPY TO THE HARD CHART. CM [facility]. AWAIT CB FROM [facility] REGRADING REFERRAL IF APPROPRIATE. MED DATA TO FOLLOW UP REGARDING DISABILITY APPLICATION VIA PHONE INTERVIEW. OT EVAL PENDING. MD DOCUMENTATION REGARDING DISABILITY PROGNOSIS PENDING. DCP- Discharge Planning Updated by [id number]: Gifty Laguerre on 03/05/19 11:[address] CM REVISITED THE PATIENT TO DISCUSS DISCHARGE PLANNING. SHE CONSENTS TO PROCEED WITH ASSESSMENT. THE PATIENT WORKED FOR THE [employer] FOR 33 YEARS. 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 SHE HAD DIFFICULTY , PAIN AND PROGRESSION OF CELLULITIS AND COULD NOT CONTINUE. 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 SHE CANNOT ASSIST AT PRESENT. HER SON AND SISTER IN LAW ARE ASSISTING AT PRESENT. PATIENT' SON IS HOME FROM COLLEGE FOR THE HOLIDAYS. SHE HAS PLANNED TO GO TO HER DAUGHTER'S HOME WHICH HAS A HANDICAP BATHROOM AND RAMPS TO ENTER THE HOME. HER LEGS ARE VERY PAINFUL WITH MIMIMAL ACTIVITY. DISCUSS THE FEASILIBILITY OF SUCCESS IN THE HOME. DISCUSSED OTHER OPTIONS. SHE IS OPEN TO LTAC SETTING . SHE DOES NOT WANT TO BE IN A "SENIOR CARE". CM EXPLAINED ABOUT FARM EQUIPMENT MECHANIC CARE AND SKILLED CARE. PATIENT VOICES CONCERNS BECAUSE SHE HAS NO INSURANCE. CM ASK IF SHE HAD CONSIDERED APPLYING FOR DISABILITY. THE PATIENT STATES SHE WAS ILL AND MEMORY WAS POOR BUT SHE THINKS SHE HAD A PHONE INTERVIEW 02/08/19 FOR DISABILITY. CM LEFT A VOICEMAIL MESSAGE FOR SHANNAN WITH [employer]. DR DAVILA AND DR FERNANDO ARE THE PHYSICIANS SHE SEES. [facility] CM SPOKE WILL OBTAIN PATIENT CHOICE FORM FOR LTAC REFERRAL. CM SPOKE W/ THE WOUND CARE NURSE. SHE WAS ON THE FLOOR TO FOLLOW UP. DCP- Discharge Planning Updated by [id number]: Gifty Laguerre on 03/05/19 10:[address] 1118 TC to [facility] in [place], [place]. As per the internet party plan salesperson for admission is Krystal Moya, Clinical Director and Admission at [phone]. No answer. CM left voice mail message w/ contact phone number. DCP- Discharge Planning Updated by [email or web address]: Gifty Hartford on 03/05/19 10:[address] 0945 CM WENT TO THE BEDSIDE TO DISCUSS DISCHARGE PLANNING. PATIENT WAS ON THE BEDPAN. CM SPOKE WITH THE SEAMLESS TUBE ROLLER. SHE AND THE NURSE ARE PLANNING TO DO HER AM CARE. 0930 AND 0955- TC TO [employer]. CM LEFT VM MESSAGE TO ASCERTAIN WHETHER SHE WOULD QUALIFY FOR MEDICAID OR DISABILITY. AWAIT CB. CM REVIEWED PATIENT PROGRESS , PHYSICAL THERAPY, RESPIRATORY AND NURSING NOTES. PER THE MD THE PATIENT PLANS TO DISCHARGE TO HER DAUGHTER'S HOME. PATIENT IS RECOMMENED FOR BIPAP. SHE IS ON 3/4 LITERS OF NASAL O2. SHE ALSO RECEIVES NEB MEDS. DME PRIOR TO ADMIT- WHEELCHAIR . NO OXYGEN. SHE HAS BILATERAL WOUND CARE FOR CELLULITIS. WOUND CARE CONSULT 02/17/19. CM SPOKE W/ LOIS, THE WOUND CARE NURSE. SHE WILL REVIEW AND ADVISE CM. PATIENT WAS SEEN BY DR FERNANDO 02/26/19 REGARDING LE AND WOUND CARE. PATIENT WITH BED MOBILITY TO BEDSIDE. STOOD FOR A FEW SECONDS W/ PHYSICAL THERAPY THEN MOD ASSIST TO LAY DOWN. TC TO [facility] TO ASCERTAIN IF [facility] BED MAYBE AVAILABLE. SPOKE W/ THE REFUELING RAMP SUPERVISOR, LAURENCE HEATONJACKLYN . [facility] IS COVERING FOR [facility]ON[facility]. THEY ARE ALLOW ED TO SERVE ONE [facility] CASE AT A TIME. SHE PRESENTLY HAS ONE PATIENT. STATES CAN SEND CLINICAL AND SHE WILL FOLLOW. CM WILL DISCUSS OPTIONS AND PROVIDERS W/ THE PATIENT AND IF SHE SELECTS AND CONSENTS WILL FORWARD REFERRAL. CM SPOKE W/ SHANNAN FROM [employer]. THE PATIENT IS OVERRESOURCE FOR MEDICAID. CM ASK IF SHE COULD APPLY FOR DISABILITY . IF THE MD FEELS DISABILITY IS APPROPRIATE , HE MUST DISCUSS WITH THE PATIENT AND DOCUMENT THE DISABILITIES. THE APPLICATION CAN BE INITIATED FROM THE PATIENT'S BEDSIDE W/ ASSIST OF [employer] DATA COUNSELOR. DCP- Discharge Planning Updated by [id number]: Bertha Vivas on 02/19/19 9:[address] Patient Name: AMBIKA HOUSE Admission Status: ER Accout number: [id number] Admission Date: 02-17-2019 : 1960 Admission Diagnosis: Attending: TONIO DAVILA Current LOS: 2 Anticipated DC Date: Planned Disposition: Primary Insurance: UNINSURED DISCOUNT PLAN Discharge Planning Comments: CM met with patient to complete initial dc planning assessment. CM educated patient on the CM role and verbal consent given by patient to complete assessment. Patient lives at home with her where she is independent with her care. At discharge patient plans to return home and feels this is a safe discharge. CM discussed availability of home health, rehab services, and medical equipment. Patient is uninsured stated they are just over income limit and may need assistance upon discharge Patient denied known discharge needs at this time. CM will continue to follow and will assist as needed with dc plans/needs. Hr Systems Analyst: Bertha Vivas DCPIA - Discharge Planning Initial Assessment Updated by [id number]: Bertha Vivas on 02/19/19 9:35 am * Is the patient Alert and Oriented? Yes * How many steps to enter\\exit or inside your home? 4-7 * PCP Maverick * Pharmacy [facility] * Preadmission Environment Home with Family * ADLs Independent * Equipment Wheelchair * Other Equipment B/P CUFF * List name and contact numbers for known caregivers / representatives who currently or will assist patient after discharge: SHAKA HOUSE - SPOUSE - [phone] * Verbal permission to speak to the caregivers and representatives has been obtained from the patient. Yes * Community resources currently utilized None * Additional services required to return to the preadmission environment? No * Can the patient safely return to the preadmission environment? Yes * Has this patient been hospitalized within the prior 30 days at any hospital? No External Providers External Provider: [facility] Next Contact Date: Service Request Date: Service Type: Resolution: Reviewer: Comments: Coverage Notice Reviewer: [id number] Cristian Laguerre Notice Issued Date-Time: 03/05/2019 12:48 Notice Type: Patient Choice Letter Notice Delivered To: Patient Relationship to Patient: Self Tugboat Engineer Name: Delivery Method: HAND - Hand Delivered Pamela Days: Prior Verbal Notification: Recipient Understood Notice: Yes Recipient Signature: Yes Med Rec Note Co-signed by Attending: Coverage Notice Comment: CM DISCUSSED LTAC AND PROVIDERS. PRESENTED LIST WITH PATIENT CHOICE FORM. PATIENT HAD NO QUESTIONS, VOICED NO CONCERNS. ORIGINAL SIGNED CONSENT TO THEHARD COVER CHART. ORIGINAL SIGNED CONSENT TO THE PATIENT. Last DP export: 03/07/19 12:52 pm Patient Name: AMBIKA HOUSE Page 51804 at 0800 All edits/amendments must be made on the electronic document DICTATION DATE: 03/08/19758 [place]OCK APPLICATOR: LIANNA 03/08/19 0759 RPT#: [id number] DC DATE: STATUS: ADM IN [facility] [address] [place] [address] END OF REPORT
[2019-03-08 08:49] VITALS: BP 118/53
--- NOTE | 2019-03-08 12:35 | NUR ---
OT NOTE: PT PERFORMED VERY WELL TODAY. REQUIRES EXTENDED TIME TO PERFORM MOBILITY TASKS DUE TO PAIN AND WEAKNESS. ABLE TO PERFORM BED MOB TO INCLUDE SUPINE TO SIT WITH MIN ASSIST TO GET TO EOB; PT ABLE TO SCOOT BOTH LEFT AND RIGHT ALONG BEDSIDE WITH REST BREAK IN BETWEEN EACH ATTEMPT. SIT TO STAND WITH MIN/MOD ASSIST TODAY; ABLE TO TAKE APPROX 5-6 STEPS TO CHAIR WITH WALKER AND MIN/MOD ASSIST. PT VERY HAPPY TO BE OUT OF BED AND SITTING UP IN CHAIR. THIS HAS BEEN HER GOAL ALL WEEK. EDUCATED IN UE/LE EXS WHILE SITTING UP; ABLE TO KAMALA JACKET WITH MIN ASSIST; MOD ASSIST TO KAMALA SLIP ON SHOES THE HAD TO BE CUT IN ORDER TO MAKE ROOM FOR EDEMA AND DRESSINGS. SAUD ABDULLAHI, OTR/L [phone]
[2019-03-08 12:49] VITALS: BP 118/60
--- NOTE | 2019-03-08 12:50 | NUR ---
HARDIN DCD WITH CATH TIP INTACT. 400CC OF URINE EMPTIED FROM BAG
--- NOTE | 2019-03-08 14:15 | NUR ---
OT NOTE: CHECKED ON PT IN PM,. SHE TOLERATED SITTING UP IN CHAIR GREATER THAN 3 HRS. PT NOW WANTING TO ATTEMPT TO USE BS COMMODE VS BED DUMONT. SEARCHED ALL AVAILABLE ROOMS AND UNABLE TO FIND BARIATRIC BS COMMODE. STARTED TO ASSIST PT BACK TO BED OT USE BED DUMONT WHEN LIME MIXER TENDER ARRIVED AND KNEW WHERE BARIATRIC BS COMMODE WAS. ASSISTED PT OVER TO COMMODE IWTH USE OF WALKER AND MIN/MOD ASSIST. PTS FEET ARE CONTINUALLY BLEEDING OUT OF SHOES AND ONTO FLOOR. REQUIRED 3 TOWELS FOR CLEAN UP OF FLUID. FOUND WOUND CARE NURSE TO ASSESS IN WHICH SHE DID, BUT UNABLE TO DO ANYTHING WHILE PT ON TOILET. RETURNED TO ASSIST PT FROM COMMODE TO BED.. REQUIRED TOTAL ASSIST IWTH PERINEAL CARE BY LIME MIXER TENDER; TRANSFERRED BACK TO BED WITH MIN/MOD ASSIST; SIT TO SUPINE WITH MAX ENCOURAGEMENT AND MIN ASSIST; EDUCATED PT ON COMPENSATORY TECH TO MOVE HERSELF UP INTO BED. PT HAS PERFORMED EXCELLENT TODAY. GREAT PROGRESS.. SAUD ABDULLAHI, OTR/L [phone]
[2019-03-08 17:50] VITALS: BP 136/77
--- NOTE | 2019-03-08 18:51 | NUR ---
TOLERATED DRESSING CHANGES.PT HAS REMAINED WITHOUT CHANGE FROM INTITIAL SHIFT ASSESSMENT.CONT PLAN OF CARE
--- NOTE | 2019-03-08 19:30 | NUR ---
PT SITTING UP IN BED WITHOUT DISTRESS, AOX4. RIGHT SUBCLAVIAN SL. O2 2L/NC. AT BEDSIDE, DENIES NEEDS AT THIS TIME. CL IN REACH, WILL CTM
[2019-03-08 20:00] VITALS: BP 114/58
--- NOTE | 2019-03-08 21:40 | NUR ---
PT STATES PAIN IN LOWER LEGS 4/10, REQUESTED AND GIVEN TYLENOL. HS MEDS GIVEN WITHOUT DIFFICULTY. STAND BY ASSISTED PT GETTING UP TO BEDSIDE COMMODE AND BACK. PT NEEDED MINIMAL ASSIST WTIH WALKER. FSBS 122, NO COVERAGE NEEDED. DENIES OTHER NEEDS. CL IN REACH, WILL CTM
[2019-03-09 04:00] VITALS: BP 94/55
--- NOTE | 2019-03-09 07:10 | NUR ---
PT RESTING IN BED. NO SIGNS OF DISTRESS. IV TO RIGHT SUBCLAVIAN PATENT NO REDNESS OR TENDERNESS. ON TELEMETRY 78 FLUTTER. ON 2L NC. DRESSING TO LOWER EXT CLEAN AND INTACT. DENIES ANY FURTHER NEED AT THIS TIME. CALL LIGHT IN REACH. BED LOW POSITION. FAMILY AT BEDSIDE.
[2019-03-09 10:12] VITALS: BP 102/45
[2019-03-09 13:40] VITALS: BP 129/59
[2019-03-09 16:45] VITALS: BP 100/70
--- NOTE | 2019-03-09 16:45 | NUR ---
I have reviewed this patient and I concur with the Shift Assessment completed by the Licensed Practical Nurse today this shift.
--- NOTE | 2019-03-09 19:17 | NUR ---
ASSISTED PATIENT TO BSC WITH WALKER. PATIENT DENIES OTHER NEEDS AT THIS TIME. BED IN LOWEST POSITION AND CALL LIGHT WITHIN REACH. ENCOURAGED PATIENT TO CALL WHEN SHE IS FINISHED. PATIENT VERBALIZED UNDERSTANDING.
[2019-03-09 20:00] VITALS: BP 132/78
[2019-03-09 23:30] VITALS: BP 112/50; BP 123/66
[2019-03-10 04:00] VITALS: BP 116/56
--- NOTE | 2019-03-10 08:20 | NUR ---
ALERT AND ORIENTED X4. DRESSINGS INTACT TO BLE. RASH NOTED TO ABDOMINAL FOLD NYSTATIN POWDER APPLIED. TELEMETRY INTACT. UP- TO BSC WITH ASSIST X1. S/L TO RT. PORT WITH NO S/S OF INFECTION. ENCOURAGED TO USE CALL LIGHT FOR ASSSIT.
[2019-03-10 09:37] VITALS: BP 101/73
[2019-03-10 12:05] VITALS: BP 114/65
[2019-03-10 15:58] VITALS: BP 99/51
--- NOTE | 2019-03-10 19:27 | NUR ---
PATIENT RESTING IN BED WITH NO S/S OF DISTRESS. PATIENT REQUESTED TYLENOL WITH NIGHT MEDS. BED IN LOWEST POSITION AND CALL LIGHT WITHIN REACH. ENCOURAGED THE PATIENT TO CALL IF SHE HAS NEEDS. WILL CONTINUE TO MONITOR.
[2019-03-10 20:51] VITALS: BP 110/56
[2019-03-11 00:21] VITALS: BP 106/59
[2019-03-11 05:08] VITALS: BP 116/60
--- NOTE | 2019-03-11 07:47 | NUR ---
PATIENT RECIEVED FROM PREVIOUS NURSE RESTING WITH HOB ELEVATED AND EYES CLOSED. RESPIRATIONS REGULAR AND NONLABORED. DRESSINGS INTACT TO BLE WITH DRAINAGE NOTED TO PAD. CL IN REACH
[2019-03-11 08:23] VITALS: BP 103/59
[2019-03-11 12:29] VITALS: BP 131/53
--- NOTE | 2019-03-11 13:13 | NUR ---
Nutrition follow-up: Diet: consistent CHO PO Intake 75-100% of meals Labs reviewed pt remains in isolation Wt: 322# RDN following.
[2019-03-11 17:08] VITALS: BP 149/83
--- NOTE | 2019-03-11 18:46 | NUR ---
OT NOTE: PT SITTING AT EOB WITH MOD I. PT COMPLETED TOILETING AT BSC WITH SBA. PT COMPLETED ADL MOB WITH CGA. PT COMPLETED BUE AROM WITH FUNCTIONAL ADL TASKS. PT IS MUCH IMPROVED AND EXHIBITING INCREASED I WITH ADLS. [phone] THANKKARELY GOODMAN COTA
--- NOTE | 2019-03-11 21:20 | NUR ---
SITTING UP IN BED. ALERT AND ORIENTED X4. RESP EVEN AND NONLABORED. O2 @ 2LNC. TELEMETRY SHOWS AFLUTTER WITH RATE OF 88. DRSGS NOTED TO BLE. BLE ARE DRY, SCALY. DENIES PAIN AT THIS TIME. RT CW INFUSAPORT IS SALINE LOCKED. AMB WITH ASSIST X1. 3+ EDEMA NOTED TO BLE. SR ELEVATED X2. CL IN REACH.
[2019-03-11 21:35] VITALS: BP 110/74
[2019-03-12 00:54] VITALS: BP 111/78
--- NOTE | 2019-03-12 03:36 | NUR ---
LYING IN BED WITH EYES CLOSED. RESP NONLABORED. O2 IN USE. HAS RESTED WELL TONIGHT. NO DISTRESS. CL IN REACH.
[2019-03-12 05:16] VITALS: BP 116/54
[2019-03-12 07:54] VITALS: BP 103/56
[2019-03-12 11:30] VITALS: BP 122/55
[2019-03-12 15:30] VITALS: BP 137/69
--- NOTE | 2019-03-12 15:47 | NUR ---
OT NOTE: PT PERFORMED VERY WELL TODAY. SIT TO STAND WITH SBA/CGA X 3 TRIALS WITH USE OF WALKER. IN ROOM AMB WITH WALKER X 30 FT WITH 2 SIT DOWN REST BREAKS. ABLE TO PERFORM UE DRESSING AND GROOMING WITH SET UP..EXT ASSIST WITH LE DRESSING DUE TO DRESSINGS ON LES. MAX ASSIST WITH DONNING SOCKS; ABLE TO PERFORM TOILET TRANSFERS BUT REQUIRES ASSIST WITH HYGIENE AND CLOTHING MGMT. SHE IS MUCH IMPROVED WITH STRENGTH AND ENDURANCE..PT DID SAY, HOWEVER, THAT SHE WANTED TO GO HOME TOMORROW, BUT LIVES IN A [place] WHICH HAS 3 STEPS INTO [place] AND A STEP UP TO THE BATHROOM. EXPLAINED TO PT THAT THIS WOULD REQUIRE A LARGE AMOUNT OF QUAD STRENGTH AND I WAS UNSURE IF SHE WOULD BE ABLE TO PERFORM AT THIS TIME. HOWEVER, SHE STATED THAT SHE WAS DETERMINED AND WOULD FIND A WAY. ALSO CONCERNED ABOUT DRESSING CHANGES HER FEET CONTINUE TO BLEED DURING IN ROOM AMBULATION. SAUD ABDULLAHI, OTR/L [phone]
--- NOTE | 2019-03-12 19:45 | NUR ---
DRSG CHANGES TO BLE PERFORMED AT THIS TIME PER ANGELICA STACK. PT CRYING AT TIMES. STATES, "IM JUST READY TO GO HOME." MEDICATED WITH TYLENOL FOR PAIN. RESP IRREG. O2 @ 2L/NC. EDEMA AND REDNESS NOTED TO BLE. TELEMETRY SHOWS AFLUTTER WITH RATE OF 78. RT TLSC IS SALINE LOCKED. ORAL THRUSH NOTED. AMB WITH WALKER. SR ELEVATED X2. CL IN REACH.
[2019-03-12 22:05] VITALS: BP 142/73
[2019-03-13] VITALS: BP 108/48
--- NOTE | 2019-03-13 02:30 | NUR ---
UP TO BSC. NO DISTRESS. DENIES PAIN. CL IN REACH.
[2019-03-13 04:00] VITALS: BP 112/62
[2019-03-13 07:32] VITALS: BP 120/50
--- NOTE | 2019-03-13 08:28 | NUR ---
PATIENT SITTING UP IN BED EATING BREAKFAST. NO COMPLAINTS OR SIGNS OF DISTRESS. CVL INTACT. CALL LIGHT WITHIN REACH.
[2019-03-13] MEDS ORDERED: AMIODARONE HCL200 MG PO (14:10)
[2019-03-13] MEDS ORDERED: SYNTHROID50 MCG PO (14:11)
[2019-03-13] MEDS ORDERED: MAG-OX 400 MG400 MG PO (14:11)
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
[2019-03-13 16:05] VITALS: BP 96/66
--- NOTE | 2019-03-13 16:17 | NUR ---
OT NOTE: PT COMPLETED ADL MOB AND SIT TO STANDS WITH CGA. PT STATED HER SON IN LAW HAS BUILT RAMPS. PT STATED SHE FEELS MUCH STRONGER. [phone] THANK YOU, ABHILASH JURADO
--- NOTE | 2019-03-13 16:33 | MORECARE ---
CASE MANAGEMENT DISCHARGE SUMMARY PATIENT: AMBIKA HOUSE UNIT: [id number] ADM DATE: 02/17/19 AGE: 58 : 62 SEX: F ROOM/BED: D.2215 AUTHOR: SUBHASH ORTEGA PHYSICIAN: REFERRING PHYSICIAN: TONIO DAVILA MD DATE OF SERVICE: 03/13/19 Discharge Plan Patient Name: AMBIKA HOUSE Facility: [facility]:[place] : 1960 Planned Disposition: Anticipated Discharge Date: Discharge Date: Expected LOS: Initial Reviewer: [email or web address] Initial Review Date: 02/19/2019 Generated: 03/13/19 5:33 pm Comments DCP- Discharge Planning Updated by [email or web address]: April Ross on 03/13/19 3:[address] PATIENT IS DISCHARING HOME TODAY WITH FAMILY. SHE STATED THAT SHE IS GOING TO HER DAUGHTERS HOME. HER DAUGHTER DOES NOT WORK SO SHE WILL BE HOME TO HELP HER NEEDED. I HAVE GIVEN HER THE PAPERWORK FOR DISABILITY. PATIENT FEELS SAFE TO DC HOME TODAY. SHE WILL NOT GET HOME HEALTH DUE TO THE FACT SHE IS UNINSURED DCP- Discharge Planning Updated by [id number]: Melanie Noland on 03/08/19 6:[address] Updated clinical faxed to [facility] in [place]. CM will continue to follow and assist with discharge planning/needs. DCP- Discharge Planning Updated by [id number]: Melanie Noland on 03/07/19 12:[address] I spoke with Laurence at [facility] in [place] about patient. Laurence states they do not currently have an indigent bed available, but their should be availability tomorrow or beginning next week. I will call back daily. I left a message at [facility] [place] for Jennifer to inquire about an indigent bed there and left my call back number. Jennifer at [facility] [place] - [phone] Laurence at [facility] - [phone] or [phone] DCP- Discharge Planning Updated by [id number]: Gifty Laguerre on 03/05/19 12:[address] PATIENT CHOICE FORM OBTAINED. SIGNED COPY TO THE PATIENT AND SIGNED COPY TO THE HARD CHART. CM FAXED REFERRAL TO [facility] . AWAIT CB FROM [facility] REGRADING REFERRAL IF APPROPRIATE. MED DATA TO FOLLOW UP REGARDING DISABILITY APPLICATION VIA PHONE INTERVIEW. OT EVAL PENDING. DOCUMENTATION REGARDING DISABILITY PROGNOSIS PENDING. DCP- Discharge Planning Updated by [id number]: Gifty Laguerre on 03/05/19 11:[address] CM REVISITED THE PATIENT TO DISCUSS DISCHARGE PLANNING. SHE CONSENTS TO PROCEED WITH ASSESSMENT. THE PATIENT WORKED FOR THE [employer] FOR 33 YEARS. SHE HAS ATTEMPTED TO WORK A SUB IN THE [employer] SYSTEM. SHE HAD DIFFICULTY , PAIN AND PROGRESSION OF CELLULITIS AND COULD NOT CONTINUE. 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 SHE CANNOT ASSIST AT PRESENT. HER SON AND SISTER IN LAW ARE ASSISTING AT PRESENT. PATIENT' SON IS HOME FROM COLLEGE FOR THE HOLIDAYS. SHE HAS PLANNED TO GO TO HER DAUGHTER'S HOME WHICH HAS A HANDICAP BATHROOM AND RAMPS TO ENTER THE HOME. HER LEGS ARE VERY PAINFUL WITH MIMIMAL ACTIVITY. DISCUSS THE FEASILIBILITY OF SUCCESS IN THE HOME. DISCUSSED OTHER OPTIONS. SHE IS OPEN TO LTAC SETTING . SHE DOES NOT WANT TO BE IN A "FCI". CM EXPLAINED ABOUT WRAPPING CLERK CARE AND SKILLED CARE. PATIENT VOICES CONCERNS BECAUSE SHE HAS NO INSURANCE. CM ASK IF SHE HAD CONSIDERED APPLYING FOR DISABILITY. THE PATIENT STATES SHE WAS ILL AND MEMORY WAS POOR BUT SHE THINKS SHE HAD A PHONE INTERVIEW 02/08/19 FOR DISABILITY. CM LEFT A VOICEMAIL MESSAGE FOR SHANNAN WITH MED DATA. DR DAVILA AND DR FERNANDO ARE THE PHYSICIANS SHE SEES. [facility] CM SPOKE WILL OBTAIN PATIENT CHOICE FORM FOR LTAC REFERRAL. CM SPOKE W/ THE WOUND CARE NURSE. SHE WAS ON THE FLOOR TO FOLLOW UP. DCP- Discharge Planning Updated by [id number]: Gifty Laguerre on 03/05/19 10:[address] 1118 TC to [facility] in [place], [place]. As per the internet personnel clerk for admission is Krystal Moya, Clinical Director and Admission at [phone]. No answer. CM left voice mail message w/ contact phone number. DCP- Discharge Planning Updated by [id number]: Gifty Laguerre on 03/05/19 10:[address] 0945 CM WENT TO THE BEDSIDE TO DISCUSS DISCHARGE PLANNING. PATIENT WAS ON THE BEDPAN. CM SPOKE WITH THE APARTMENT GROUNDSKEEPER. SHE AND THE NURSE ARE PLANNING TO DO HER AM CARE. 0930 AND 0955- TC TO [employer]. CM LEFT VM MESSAGE TO ASCERTAIN WHETHER SHE WOULD QUALIFY FOR MEDICAID OR DISABILITY. AWAIT CB. CM REVIEWED PATIENT PROGRESS , PHYSICAL THERAPY, RESPIRATORY AND NURSING NOTES. PER THE MD THE PATIENT PLANS TO DISCHARGE TO HER DAUGHTER'S HOME. PATIENT IS RECOMMENED FOR BIPAP. SHE IS ON 3/4 LITERS OF NASAL O2. SHE ALSO RECEIVES NEB MEDS. DME PRIOR TO ADMIT- WHEELCHAIR . NO OXYGEN. SHE HAS BILATERAL WOUND CARE FOR CELLULITIS. WOUND CARE CONSULT 02/17/19. CM SPOKE W/ OLIS, THE WOUND CARE NURSE. SHE WILL REVIEW AND ADVISE CM. PATIENT WAS SEEN BY DR FERNANDO 02/26/19 REGARDING LE AND WOUND CARE. PATIENT WITH BED MOBILITY TO BEDSIDE. STOOD FOR A FEW SECONDS W/ PHYSICAL THERAPY THEN MOD ASSIST TO LAY DOWN. TC TO [facility] TO ASCERTAIN IF [facility] BED MAYBE AVAILABLE. SPOKE W/ THE SKIMMER, LAURENCE CHAVEZ . [facility] IS COVERING FOR [facility]. THEY ARE ALLOW ED TO SERVE ONE [facility]A CASE AT A TIME. SHE PRESENTLY HAS ONE PATIENT. STATES CAN SEND CLINICAL AND SHE WILL FOLLOW. CM WILL DISCUSS OPTIONS AND PROVIDERS W/ THE PATIENT AND IF SHE SELECTS AND CONSENTS WILL FORWARD REFERRAL. CM SPOKE W/ SHANNAN FROM [facility]. THE PATIENT IS OVERRESOURCE FOR MEDICAID. CM ASK IF SHE COULD APPLY FOR DISABILITY . IF THE MD FEELS DISABILITY IS APPROPRIATE , HE MUST DISCUSS WITH THE PATIENT AND DOCUMENT THE DISABILITIES. THE APPLICATION CAN BE INITIATED FROM THE PATIENT'S BEDSIDE W/ ASSIST OF [employer] COUNSELOR. DCP- Discharge Planning Updated by [id number]: Bertha Vivas on 02/19/19 9:[address] Patient Name: AMBIKA HOUSE Admission Status: ER Accout number: [id number] Admission Date: 02-17-2019 : 1960 Admission Diagnosis: Attending: TONIO DAVILA Current LOS: 2 Anticipated DC Date: Planned Disposition: Primary Insurance: UNINSURED DISCOUNT PLAN Discharge Planning Comments: CM met with patient to complete initial dc planning assessment. CM educated patient on the CM role and verbal consent given by patient to complete assessment. Patient lives at home with her where she is independent with her care. At discharge patient plans to return home and feels this is a safe discharge. CM discussed availability of home health, rehab services, and medical equipment. Patient is uninsured stated they are just over income limit and may need assistance upon discharge Patient denied known discharge needs at this time. CM will continue to follow and will assist as needed with dc plans/needs. Front Maker: Bertha Vivas DCPIA - Discharge Planning Initial Assessment Updated by [id number]: Bertha Vivas on 02/19/19 9:35 am * Is the patient Alert and Oriented? Yes * How many steps to enter\\exit or inside your home? 4-7 * PCP Maverick * Pharmacy [facility] * Preadmission Environment Home with Family * ADLs Independent * Equipment Wheelchair * Other Equipment B/P CUFF * List name and contact numbers for known caregivers / representatives who currently or will assist patient after discharge: SHAKA HOUSE - SPOUSE - [phone] * Verbal permission to speak to the caregivers and representatives has been obtained from the patient. Yes * Community resources currently utilized None * Additional services required to return to the preadmission environment? No * Can the patient safely return to the preadmission environment? Yes * Has this patient been hospitalized within the prior 30 days at any hospital? No Coverage Notice Reviewer: [id number] Cristian Laguerre Notice Issued Date-Time: 03/05/2019 12:48 Notice Type: Patient Choice Letter Notice Delivered To: Patient Relationship to Patient: Self Medical Territory Manager Name: Delivery Method: HAND - Hand Delivered Pamela Days: Prior Verbal Notification: Recipient Understood Notice: Yes Recipient Signature: Yes Med Rec Note Co-signed by Attending: Coverage Notice Comment: CM DISCUSSED LTAC AND PROVIDERS. PRESENTED LIST WITH PATIENT CHOICE FORM. PATIENT HAD NO QUESTIONS, VOICED NO CONCERNS. ORIGINAL SIGNED CONSENT TO THEHARD COVER CHART. ORIGINAL SIGNED CONSENT TO THE PATIENT. Last DP export: 03/08/19 7:00 am Patient Name: AMBIKA HOUSE Page [id number] at 1633 All edits/amendments must be made on the electronic document DICTATION DATE: 03/13/19 1633 PERSONAL CARE SERVICE PROVIDER: LIANNA 03/13/19 1633 RPT#: [id number] DC DATE: STATUS: ADM IN [facility] [address] [place] [address] END OF REPORT
--- NOTE | 2019-03-13 17:18 | NUR ---
DRESSINGS TO BLE CHANGED AND CVL REMOVED ORDERED. PATIENT IS BEING DC'D. WAITING FOR DC PAPERS. FAMILY AT BEDSIDE. CALL LIGHT WITHIN REACH.
--- NOTE | 2019-03-13 18:01 | NUR ---
PATIENT RECIEVED DC INSTRUCTIONS. VERBALIZED UNDERSTANDING. NO QUESTIONS AT THIS TIME. EXPL[facility] VERBALIZED UNDERSTANDING. FAMILY AT BEDSIDE. ASSISTED IN WC AND ESCORTED BY MANAGER WATER WASTEWATER TO PRIVATE VEHICLE WITH PERSONAL BELONGINGS.
== END 2019-03-13 18:04 | disposition home or self-care (01) | DRG 871 ==
LOC: D.ER 01:51 → D.MS 04:08 → D.ICU 04:08 → D.MS 02-22 07:01
PROVIDERS: Emergency Medicine; Family Medicine; Internal Medicine Pulmonary Disease; ADMIT Family Medicine; ATTEND Family Medicine
PROC: 05H533Z Insertion of Infusion Device into Right Subclavian Vein, Percutaneous Approach (ICD-10-PCS; principal; 2019-02-17)
PROC: 5A09357 Assistance with Respiratory Ventilation, Less than 24 Consecutive Hours, Continuous Positive Airway Pressure (ICD-10-PCS; 2019-02-20)
DX: A41.9 Sepsis, unspecified organism (principal); R65.21 Severe sepsis with septic shock; N17.0 Acute kidney failure with tubular necrosis; G93.41 Metabolic encephalopathy; J96.21 Acute and chronic respiratory failure with hypoxia; L03.116 Cellulitis of left lower limb; L03.115 Cellulitis of right lower limb; N39.0 Urinary tract infection, site not specified; E87.2 Acidosis; I96 Gangrene, not elsewhere classified; I10 Essential (primary) hypertension; E66.01 Morbid (severe) obesity due to excess calories; R73.03 Prediabetes; I48.91 Unspecified atrial fibrillation; R53.81 Other malaise; D64.9 Anemia, unspecified; E87.5 Hyperkalemia; S81.802A Unspecified open wound, left lower leg, initial encounter; S81.801A Unspecified open wound, right lower leg, initial encounter; E03.9 Hypothyroidism, unspecified; E66.9 Obesity, unspecified